=== PATIENT | male | born 1985 | race Caucasian/White ===

== ENCOUNTER 2019-10-23 19:36 | Emergency (ER) | payer MEDICARE, MEDICAID ==
[~2019-10-23] VITALS: Ht 175.3 cm; Wt 72.7 kg
[~2019-10-23 19:36] MED LIST: DIPH50 PO; DIVA500T52 PO; OLAN10TA3 PO
[2019-10-23] MEDS ORDERED: RISP1TAB27 PO (19:43)
[2019-10-23 20:13] LABS: AMPHET/METH SCREEN,URINE NEGATIVE (NEGATIVE); BARBITURATE SCREEN, URINE NEGATIVE (NEGATIVE); BENZODIAZEPINES SCREEN,URINE NEGATIVE (NEGATIVE); CANNABINOID SCREEN,URINE NEGATIVE (NEGATIVE); COCAINE SCREEN,URINE NEGATIVE (NEGATIVE); METHADONE SCREEN, URINE NEGATIVE (NEGATIVE); OPIATE SCREEN,URINE NEGATIVE (NEGATIVE)
[2019-10-23 20:18] LABS: PHENCYCLIDINE SCREEN,URINE NEGATIVE (NEGATIVE)
[2019-10-23 21:57] LABS: ANION GAP 10 mmol/L (8-16); CALCIUM, TOTAL 8.6 mg/dL (8.8-10.5); CARBON DIOXIDE 25 mmol/L (22-29); CHLORIDE 102 mmol/L (98-107); CREATININE 0.68 mg/dL (0.60-1.30); GLOMERULAR FILTR. RATE CALC > 60 mL/min (>60); GLUCOSE,RANDOM 108 mg/dL (70-110); POTASSIUM 3.9 mmol/L (3.5-5.1); SODIUM SERUM 137 mmol/L (136-145); UREA NITROGEN, BLOOD 6 mg/dL (7-18)
[2019-10-23 22:02] LABS: ALANINE AMINOTRANSFERASE 18 U/L (12-78); ALBUMIN 3.7 g/dL (3.4-5.0); ALKALINE PHOSPHATASE 95 U/L (46-116); ASPARTATE AMINOTRANSFERASE 23 U/L (15-37); BILIRUBIN,TOTAL 0.3 mg/dL (0.1-1.0); TOTAL PROTEIN, SERUM 7.1 g/dL (6.4-8.2)
[2019-10-23 22:35] LABS: BASOPHILS % (AUTO) 1.2 % (0.0-2.0); EOSINOPHILS % (AUTO) 2.4 % (1.0-6.0); HEMATOCRIT 40.3 % (41-53); HEMOGLOBIN 13.4 g/dL (13.5-17.5); LYMPHOCYTES # (AUTO) 1.4 K/uL (1.0-4.8); LYMPHOCYTES % (AUTO) 24.6 % (22.0-44.0); MEAN CORPUSCULAR HEMOGLOBIN 29.9 pg (26.0-34.0); MEAN CORPUSCULAR HGB CONC 33.4 G/dL (31.0-37.0); MEAN CORPUSCULAR VOLUME 90 fL (80-100); MONOCYTES # (AUTO) 0.7 K/uL (0.1-1.0); MONOCYTES % (AUTO) 12.3 % (2.0-9.0); NEUTROPHILS # (AUTO) 3.5 K/uL (1.8-7.7); NEUTROPHILS % (AUTO) 59.5 % (40.0-70.0); PLATELET COUNT (AUTO) 160 K/uL (150-450); RED BLOOD CELL COUNT(AUTO) 4.49 MIL/uL (4.50-5.90)
[2019-10-24 00:14] VITALS: BP 124/72
[2019-10-24] MEDS ORDERED: RisperiDONE 1 MG TABLET PO ONE (00:45)
== END 2019-10-24 00:50 | disposition home or self-care (01) ==
LOC: EMS 19:37
DX: R44.0 Auditory hallucinations (principal); F12.90 Cannabis use, unspecified, uncomplicated; F15.90 Other stimulant use, unspecified, uncomplicated
CPT/HCPCS: 36415; 80053; 80307; 85025; 99284; G0480

== ENCOUNTER 2020-08-20 15:12 | Inpatient (IN) | payer MEDICARE, MEDICAID ==
[~2020-08-20] VITALS: Ht 175.3 cm; Wt 83.8 kg
[~2020-08-20 15:12] MED LIST changes: -DIPH50 PO; -DIVA500T52 PO; -OLAN10TA3 PO; +RISP1TAB48 PO
[2020-08-20] MEDS ORDERED: TRIF2 PO (15:23)
[2020-08-20] MEDS ORDERED: DIVA-80 PO (15:23)
[2020-08-20] MEDS ORDERED: CHLO100T31 PO (15:23)
[2020-08-20] MEDS ORDERED: HALOPERIDOL 5 MG TABLET PO ONE ×2 (15:45→16:15)
[2020-08-20 18:52] LABS: COVID AG,FIA SOURCE NASOPHARYNGEAL
[2020-08-20] MEDS ORDERED: [UNRECOGNIZED DRUG - CODE] PO (19:35)
[2020-08-20] MEDS: LORazepam 2 MG TABLET PO PRN (22:15)
[2020-08-20] MEDS: ZOLPIDEM TARTRATE 10 MG TABLET PO PRN (22:15)
[2020-08-20 22:24] VITALS: BP 108/69
[2020-08-21 00:29] VITALS: BP 93/57
[2020-08-21] MEDS ORDERED: NICOTINE 14 MG/24 HOUR PATCH TD PRN (07:00)
[2020-08-21] MEDS ORDERED: ONDANSETRON HCL 4 MG TABLET PO PRN (07:00)
[2020-08-21] MEDS ORDERED: LOPERAMIDE HCL 2 MG CAPSULE PO PRN (07:00)
[2020-08-21] MEDS ORDERED: CloNIDine HCL 0.1 MG TABLET PO PRN (07:00)
[2020-08-21] MEDS ORDERED: DOCUSATE SODIUM 100 MG CAPSULE PO PRN (07:00)
[2020-08-21] MEDS ORDERED: ACETAMINOPHEN 325 MG TABLET PO PRN (07:00)
[2020-08-21] MEDS ORDERED: GuaiFENesin/D-METHORPHAN [SUGAR-FREE] 200-20MG/10 ML SYRUP UDCUP PO PRN (07:00)
[2020-08-21] MEDS ORDERED: ALBUTEROL SULFATE HFA 90 MCG/PUFF 8 GM INHALER IH PRN (07:00)
[2020-08-21 07:42] LABS: BASOPHILS % (AUTO) 1.9 % (0.0-2.0); HEMATOCRIT 36.3 % (41-53); HEMOGLOBIN 12.6 g/dL (13.5-17.5); LYMPHOCYTES % (AUTO) 33.7 % (22.0-44.0); MEAN CORPUSCULAR HEMOGLOBIN 31.3 pg (26.0-34.0); MEAN CORPUSCULAR HGB CONC 34.6 G/dL (31.0-37.0); MEAN CORPUSCULAR VOLUME 90 fL (80-100); MONOCYTES # (AUTO) 0.6 K/uL (0.1-1.0); MONOCYTES % (AUTO) 9.7 % (2.0-9.0); NEUTROPHILS # (AUTO) 1.4 K/uL (1.8-7.7); PLATELET COUNT (AUTO) 182 K/uL (150-450); RED BLOOD CELL COUNT(AUTO) 4.02 MIL/uL (4.50-5.90); RED CELL DISTRIBUTION WIDTH 14.1 % (11.5-14.5)
[2020-08-21 07:44] LABS: EOSINOPHILS % (AUTO) 31.7 % (1.0-6.0)
[2020-08-21 08:01] LABS: ALANINE AMINOTRANSFERASE 20 U/L (12-78); ALBUMIN 3.2 g/dL (3.4-5.0); ALKALINE PHOSPHATASE 57 U/L (46-116); ANION GAP 6 mmol/L (8-16); ASPARTATE AMINOTRANSFERASE 17 U/L (15-37); BILIRUBIN,TOTAL 0.6 mg/dL (0.1-1.0); CALCIUM, TOTAL 8.3 mg/dL (8.8-10.5); CARBON DIOXIDE 28 mmol/L (22-29); CHLORIDE 109 mmol/L (98-107); CREATININE 0.67 mg/dL (0.60-1.30); GLOMERULAR FILTR. RATE CALC > 60 mL/min (>60); GLUCOSE,RANDOM 89 mg/dL (70-110); SODIUM SERUM 143 mmol/L (136-145); UREA NITROGEN, BLOOD 10 mg/dL (7-18)
[2020-08-21 08:10] VITALS: BP 109/65
[2020-08-21] MEDS: DIVALPROEX SODIUM 500 MG ER TABLET PO SCH (16:30)
[2020-08-21] MEDS: RisperiDONE 1 MG TABLET PO SCH (16:30)
[2020-08-21 16:33] VITALS: BP 105/62
[2020-08-21] MEDS: LORazepam 2 MG TABLET PO PRN (16:35)
[2020-08-22 00:21] VITALS: BP 86/60
[2020-08-22] MEDS: RisperiDONE 1 MG TABLET PO SCH ×3 (08:52→16:18)
[2020-08-22] MEDS: DIVALPROEX SODIUM 500 MG ER TABLET PO SCH ×3 (08:52→16:18)
[2020-08-22] MEDS: HALOPERIDOL 5 MG TABLET PO PRN (09:07)
[2020-08-22] MEDS: LORazepam 2 MG TABLET PO PRN ×2 (10:10→21:23)
[2020-08-22 12:38] VITALS: BP 100/64
[2020-08-22 16:36] VITALS: BP 101/66
[2020-08-23 06:12] VITALS: BP 100/61
[2020-08-23 08:40] VITALS: BP 106/60
[2020-08-23] MEDS: RisperiDONE 1 MG TABLET PO SCH ×2 (08:58→13:12)
[2020-08-23] MEDS: DIVALPROEX SODIUM 500 MG ER TABLET PO SCH ×3 (08:58→16:37)
[2020-08-23 16:31] VITALS: BP 107/63
[2020-08-23] MEDS: ChlorproMAZINE HCL 100 MG TABLET PO SCH (16:37)
[2020-08-23] MEDS: MUPIROCIN CALCIUM 2% 22 GM OINTMENT NASAL SCH ×2 (17:00→21:52)
[2020-08-23] MEDS: HALOPERIDOL 5 MG TABLET PO PRN (20:12)
[2020-08-23] MEDS: LORazepam 2 MG TABLET PO PRN (20:12)
[2020-08-24 05:49] VITALS: BP 102/69
[2020-08-24 08:21] LABS: HEMOGLOBIN A1C 5.1 % (3.8-5.6)
[2020-08-24 08:23] LABS: BASOPHILS % (AUTO) 1.3 % (0.0-2.0); HEMATOCRIT 37.8 % (41-53); HEMOGLOBIN 13.1 g/dL (13.5-17.5); LYMPHOCYTES # (AUTO) 1.8 K/uL (1.0-4.8); LYMPHOCYTES % (AUTO) 25.3 % (22.0-44.0); MEAN CORPUSCULAR HEMOGLOBIN 31.4 pg (26.0-34.0); MEAN CORPUSCULAR HGB CONC 34.6 G/dL (31.0-37.0); MEAN CORPUSCULAR VOLUME 91 fL (80-100); MONOCYTES # (AUTO) 0.8 K/uL (0.1-1.0); MONOCYTES % (AUTO) 11.2 % (2.0-9.0); NEUTROPHILS # (AUTO) 3.1 K/uL (1.8-7.7); NEUTROPHILS % (AUTO) 43.6 % (40.0-70.0); PLATELET COUNT (AUTO) 182 K/uL (150-450); RED BLOOD CELL COUNT(AUTO) 4.17 MIL/uL (4.50-5.90); RED CELL DISTRIBUTION WIDTH 13.8 % (11.5-14.5)
[2020-08-24 08:24] VITALS: BP 110/68
[2020-08-24 08:26] LABS: EOSINOPHILS % (AUTO) 18.6 % (1.0-6.0)
[2020-08-24 08:46] LABS: ALANINE AMINOTRANSFERASE 21 U/L (12-78); ALBUMIN 3.5 g/dL (3.4-5.0); ALKALINE PHOSPHATASE 58 U/L (46-116); ANION GAP 7 mmol/L (8-16); ASPARTATE AMINOTRANSFERASE 14 U/L (15-37); BILIRUBIN,TOTAL 0.8 mg/dL (0.1-1.0); CALCIUM, TOTAL 8.5 mg/dL (8.8-10.5); CARBON DIOXIDE 29 mmol/L (22-29); CHLORIDE 105 mmol/L (98-107); CHOL/HDL RATIO 1.6 (4.2-7.3); CHOLESTEROL 78 mg/dL (131-200); CREATININE 0.72 mg/dL (0.60-1.30); FREE T4 (FREE THYROXINE) 0.92 ng/dL (0.76-1.46); GLOMERULAR FILTR. RATE CALC > 60 mL/min (>60); GLUCOSE,RANDOM 88 mg/dL (70-110); HDL CHOLESTEROL 48 mg/dL (40-60); LDL CHOL (CALC.) 20 mg/dL (0-130); POTASSIUM 4.4 mmol/L (3.5-5.1); SODIUM SERUM 141 mmol/L (136-145); THYROID STIMULATING HORMONE 1.33 uIU/mL (0.36-3.74); TOTAL PROTEIN, SERUM 6.3 g/dL (6.4-8.2); TRIGLYCERIDES 50 mg/dL (15-150); UREA NITROGEN, BLOOD 12 mg/dL (7-18)
[2020-08-24] MEDS: DIVALPROEX SODIUM 500 MG ER TABLET PO SCH ×3 (09:24→16:38)
[2020-08-24] MEDS: ChlorproMAZINE HCL 100 MG TABLET PO SCH ×3 (09:24→16:38)
[2020-08-24] MEDS: MUPIROCIN CALCIUM 2% 22 GM OINTMENT NASAL SCH ×2 (09:24→16:39)
[2020-08-24] MEDS: LORazepam 2 MG TABLET PO PRN (12:55)
[2020-08-24 16:24] VITALS: BP 116/70
[2020-08-25 02:31] VITALS: BP 116/75
[2020-08-25 07:59] LABS: COVID AG,FIA SOURCE NASOPHARYNGEAL
[2020-08-25 08:41] VITALS: BP 106/67
[2020-08-25] MEDS: HALOPERIDOL 5 MG TABLET PO PRN (08:45)
[2020-08-25] MEDS: ChlorproMAZINE HCL 100 MG TABLET PO SCH ×3 (08:45→16:30)
[2020-08-25] MEDS: LORazepam 2 MG TABLET PO PRN (08:45)
[2020-08-25] MEDS: DIVALPROEX SODIUM 500 MG ER TABLET PO SCH ×3 (08:45→16:30)
[2020-08-25] MEDS: MUPIROCIN CALCIUM 2% 22 GM OINTMENT NASAL SCH ×2 (08:46→16:29)
[2020-08-25 16:24] VITALS: BP 115/76
[2020-08-25] MEDS: BACITRACIN 28 GM OINTMENT TP SCH (16:44)
[2020-08-26 05:44] VITALS: BP 97/56
[2020-08-26] MEDS: HALOPERIDOL 5 MG TABLET PO PRN ×2 (07:34→11:45)
[2020-08-26] MEDS: BACITRACIN 28 GM OINTMENT TP SCH ×2 (08:57→16:29)
[2020-08-26] MEDS: ChlorproMAZINE HCL 100 MG TABLET PO SCH ×3 (08:57→16:29)
[2020-08-26] MEDS: DIVALPROEX SODIUM 500 MG ER TABLET PO SCH ×3 (08:57→16:29)
[2020-08-26] MEDS: MUPIROCIN CALCIUM 2% 22 GM OINTMENT NASAL SCH ×2 (08:58→16:29)
[2020-08-26 09:00] VITALS: BP 100/66
[2020-08-26] MEDS: LORazepam 2 MG TABLET PO PRN (11:45)
[2020-08-26 16:12] VITALS: BP 137/64
[2020-08-27 01:17] VITALS: BP 119/77
[2020-08-27 08:29] VITALS: BP 103/64
[2020-08-27] MEDS: ChlorproMAZINE HCL 100 MG TABLET PO SCH ×3 (08:57→16:31)
[2020-08-27] MEDS: THIAMINE 100 MG TABLET PO SCH (08:57)
[2020-08-27] MEDS: FOLIC ACID 1 MG TABLET PO SCH (08:57)
[2020-08-27] MEDS: DIVALPROEX SODIUM 500 MG ER TABLET PO SCH ×3 (08:57→16:31)
[2020-08-27] MEDS: MUPIROCIN CALCIUM 2% 22 GM OINTMENT NASAL SCH ×2 (08:59→16:31)
[2020-08-27] MEDS: BACITRACIN 28 GM OINTMENT TP SCH ×2 (09:07→16:32)
[2020-08-27] MEDS: LORazepam 2 MG TABLET PO PRN (10:10)
[2020-08-27] MEDS: HALOPERIDOL 5 MG TABLET PO PRN (10:10)
[2020-08-27 16:08] VITALS: BP 107/72
[2020-08-28 00:25] VITALS: BP 113/62
[2020-08-28] MEDS: ChlorproMAZINE HCL 100 MG TABLET PO SCH ×3 (08:32→16:00)
[2020-08-28] MEDS: THIAMINE 100 MG TABLET PO SCH (08:32)
[2020-08-28] MEDS: LORazepam 2 MG TABLET PO PRN ×3 (08:32→18:22)
[2020-08-28] MEDS: HALOPERIDOL 5 MG TABLET PO PRN (08:32)
[2020-08-28] MEDS: FOLIC ACID 1 MG TABLET PO SCH (08:32)
[2020-08-28] MEDS: DIVALPROEX SODIUM 500 MG ER TABLET PO SCH ×3 (08:32→16:00)
[2020-08-28] MEDS: BACITRACIN 28 GM OINTMENT TP SCH ×2 (08:33→16:09)
[2020-08-28] MEDS: MUPIROCIN CALCIUM 2% 22 GM OINTMENT NASAL SCH ×2 (08:33→16:10)
[2020-08-28 08:40] VITALS: BP 106/66
[2020-08-28] MEDS ORDERED: PALIPERIDONE PALMITATE 234 MG/1.5 ML SYRINGE IM SCH (09:00)
[2020-08-28 16:09] VITALS: BP 107/67
[2020-08-29 07:01] VITALS: BP 98/60
[2020-08-29 08:16] VITALS: BP 105/62
[2020-08-29] MEDS: THIAMINE 100 MG TABLET PO SCH (08:18)
[2020-08-29] MEDS: HALOPERIDOL 5 MG TABLET PO PRN (08:18)
[2020-08-29] MEDS: DIVALPROEX SODIUM 500 MG ER TABLET PO SCH ×3 (08:18→20:37)
[2020-08-29] MEDS: LORazepam 2 MG TABLET PO PRN ×3 (08:18→16:57)
[2020-08-29] MEDS: FOLIC ACID 1 MG TABLET PO SCH (08:18)
[2020-08-29] MEDS: BACITRACIN 28 GM OINTMENT TP SCH ×2 (08:24→16:27)
[2020-08-29] MEDS: MUPIROCIN CALCIUM 2% 22 GM OINTMENT NASAL SCH ×2 (08:24→16:27)
[2020-08-29] MEDS: ChlorproMAZINE HCL 100 MG TABLET PO SCH ×3 (09:05→20:37)
[2020-08-29 16:16] VITALS: BP 118/71
[2020-08-30 00:28] VITALS: BP 95/60
[2020-08-30] MEDS: DIVALPROEX SODIUM 500 MG ER TABLET PO SCH ×3 (08:34→20:39)
[2020-08-30] MEDS: ChlorproMAZINE HCL 100 MG TABLET PO SCH ×3 (08:34→20:39)
[2020-08-30] MEDS: FOLIC ACID 1 MG TABLET PO SCH (08:34)
[2020-08-30] MEDS: MUPIROCIN CALCIUM 2% 22 GM OINTMENT NASAL SCH ×2 (08:34→16:38)
[2020-08-30] MEDS: BACITRACIN 28 GM OINTMENT TP SCH ×2 (08:34→16:38)
[2020-08-30 08:35] VITALS: BP 106/68
[2020-08-30] MEDS: THIAMINE 100 MG TABLET PO SCH (08:37)
[2020-08-30] MEDS: LORazepam 2 MG TABLET PO PRN (13:13)
[2020-08-30 16:09] VITALS: BP 108/69
[2020-08-31 00:31] VITALS: BP 106/63
[2020-08-31] MEDS: DIVALPROEX SODIUM 500 MG ER TABLET PO SCH ×3 (08:23→20:04)
[2020-08-31] MEDS: FOLIC ACID 1 MG TABLET PO SCH (08:24)
[2020-08-31] MEDS: THIAMINE 100 MG TABLET PO SCH (08:24)
[2020-08-31] MEDS: BACITRACIN 28 GM OINTMENT TP SCH ×2 (08:24→16:20)
[2020-08-31 08:38] VITALS: BP 113/65
[2020-08-31] MEDS: LORazepam 2 MG TABLET PO PRN ×2 (08:45→14:46)
[2020-08-31] MEDS: ChlorproMAZINE HCL 100 MG TABLET PO SCH ×3 (08:45→20:04)
[2020-08-31] MEDS: HALOPERIDOL 5 MG TABLET PO PRN ×3 (08:45→20:04)
[2020-08-31 16:18] VITALS: BP 116/75
[2020-09-01 00:36] VITALS: BP 105/63
[2020-09-01 07:20] LABS: COVID AG,FIA SOURCE NASOPHARYNGEAL
[2020-09-01] MEDS: THIAMINE 100 MG TABLET PO SCH (09:03)
[2020-09-01] MEDS: ChlorproMAZINE HCL 100 MG TABLET PO SCH ×3 (09:03→20:30)
[2020-09-01] MEDS: DIVALPROEX SODIUM 500 MG ER TABLET PO SCH ×3 (09:03→20:30)
[2020-09-01] MEDS: FOLIC ACID 1 MG TABLET PO SCH (09:03)
[2020-09-01] MEDS: HALOPERIDOL 5 MG TABLET PO PRN ×2 (09:08→22:17)
[2020-09-01] MEDS: LORazepam 2 MG TABLET PO PRN ×2 (09:08→22:17)
[2020-09-01] MEDS: BACITRACIN 28 GM OINTMENT TP SCH ×2 (09:10→16:20)
[2020-09-01 09:12] VITALS: BP 102/57
[2020-09-01 16:27] VITALS: BP 104/58
[2020-09-02 04:32] VITALS: BP 118/65
[2020-09-02 08:12] VITALS: BP 110/66
[2020-09-02] MEDS: BACITRACIN 28 GM OINTMENT TP SCH ×2 (08:52→16:44)
[2020-09-02] MEDS: ChlorproMAZINE HCL 100 MG TABLET PO SCH ×3 (08:52→20:40)
[2020-09-02] MEDS: FOLIC ACID 1 MG TABLET PO SCH (08:52)
[2020-09-02] MEDS: DIVALPROEX SODIUM 500 MG ER TABLET PO SCH ×3 (08:52→20:40)
[2020-09-02] MEDS: THIAMINE 100 MG TABLET PO SCH (08:52)
[2020-09-02] MEDS: LORazepam 2 MG TABLET PO PRN (08:53)
[2020-09-02] MEDS: HALOPERIDOL 5 MG TABLET PO PRN (08:53)
[2020-09-02 16:08] VITALS: BP 108/70
[2020-09-02] MEDS: MAG HYDROX/AL HYDROX/SIMETH ES 30 ML SUSPENSION UDCUP PO PRN (20:39)
[2020-09-03 00:48] VITALS: BP 100/58
[2020-09-03] MEDS: LORazepam 2 MG TABLET PO PRN ×3 (01:20→14:41)
[2020-09-03 08:14] VITALS: BP 109/68
[2020-09-03] MEDS: THIAMINE 100 MG TABLET PO SCH (08:47)
[2020-09-03] MEDS: DIVALPROEX SODIUM 500 MG ER TABLET PO SCH ×3 (08:47→20:30)
[2020-09-03] MEDS: FOLIC ACID 1 MG TABLET PO SCH (08:47)
[2020-09-03] MEDS: ChlorproMAZINE HCL 100 MG TABLET PO SCH ×3 (08:47→20:30)
[2020-09-03] MEDS: HALOPERIDOL 5 MG TABLET PO PRN ×2 (08:48→14:41)
[2020-09-03] MEDS: BACITRACIN 28 GM OINTMENT TP SCH ×2 (08:48→16:34)
[2020-09-03 16:11] VITALS: BP 110/72
[2020-09-04 06:04] VITALS: BP 99/61
[2020-09-04 08:21] VITALS: BP 106/64
[2020-09-04] MEDS: DIVALPROEX SODIUM 500 MG ER TABLET PO SCH ×3 (08:40→20:34)
[2020-09-04] MEDS: THIAMINE 100 MG TABLET PO SCH (08:40)
[2020-09-04] MEDS: FOLIC ACID 1 MG TABLET PO SCH (08:41)
[2020-09-04] MEDS: ChlorproMAZINE HCL 100 MG TABLET PO SCH ×3 (08:41→20:34)
[2020-09-04] MEDS: BACITRACIN 28 GM OINTMENT TP SCH ×2 (08:43→16:33)
[2020-09-04] MEDS: HALOPERIDOL 5 MG TABLET PO PRN (09:16)
[2020-09-04] MEDS: LORazepam 2 MG TABLET PO PRN ×2 (09:53→16:09)
[2020-09-04 16:24] VITALS: BP 108/67
[2020-09-05 00:37] VITALS: BP 94/51
[2020-09-05 08:37] VITALS: BP 108/62
[2020-09-05] MEDS: FOLIC ACID 1 MG TABLET PO SCH (09:42)
[2020-09-05] MEDS: ChlorproMAZINE HCL 100 MG TABLET PO SCH ×3 (09:42→20:42)
[2020-09-05] MEDS: DIVALPROEX SODIUM 500 MG ER TABLET PO SCH ×3 (09:42→20:42)
[2020-09-05] MEDS: BACITRACIN 28 GM OINTMENT TP SCH ×2 (09:43→16:46)
[2020-09-05] MEDS: THIAMINE 100 MG TABLET PO SCH (09:43)
[2020-09-05] MEDS: LORazepam 2 MG TABLET PO PRN (10:51)
[2020-09-05 16:18] VITALS: BP 115/76
[2020-09-05] MEDS: MAG HYDROX/AL HYDROX/SIMETH ES 30 ML SUSPENSION UDCUP PO PRN (21:40)
[2020-09-06 00:35] VITALS: BP 123/71
[2020-09-06 02:50] VITALS: BP 119/64
[2020-09-06] MEDS: HALOPERIDOL 5 MG TABLET PO PRN ×3 (03:13→13:12)
[2020-09-06] MEDS: LORazepam 2 MG TABLET PO PRN ×5 (03:13→13:04)
[2020-09-06 08:11] VITALS: BP 101/61
[2020-09-06] MEDS: ZOLPIDEM TARTRATE 10 MG TABLET PO PRN (08:30)
[2020-09-06] MEDS: FOLIC ACID 1 MG TABLET PO SCH (09:10)
[2020-09-06] MEDS: BACITRACIN 28 GM OINTMENT TP SCH ×2 (09:10→16:13)
[2020-09-06] MEDS: THIAMINE 100 MG TABLET PO SCH (09:10)
[2020-09-06] MEDS: ChlorproMAZINE HCL 100 MG TABLET PO SCH ×3 (09:10→20:49)
[2020-09-06] MEDS: DIVALPROEX SODIUM 500 MG ER TABLET PO SCH ×3 (09:10→20:49)
[2020-09-06 16:23] VITALS: BP 124/73
[2020-09-07 00:55] VITALS: BP 110/62
[2020-09-07 07:58] LABS: COVID AG,FIA SOURCE NASOPHARYNGEAL
[2020-09-07 08:34] VITALS: BP 108/66
[2020-09-07] MEDS: DIVALPROEX SODIUM 500 MG ER TABLET PO SCH ×3 (08:49→20:31)
[2020-09-07] MEDS: FOLIC ACID 1 MG TABLET PO SCH (08:50)
[2020-09-07] MEDS: ChlorproMAZINE HCL 100 MG TABLET PO SCH ×3 (08:50→20:31)
[2020-09-07] MEDS: THIAMINE 100 MG TABLET PO SCH (08:50)
[2020-09-07] MEDS: BACITRACIN 28 GM OINTMENT TP SCH ×2 (08:51→16:34)
[2020-09-07] MEDS: LORazepam 2 MG TABLET PO PRN ×2 (08:51→22:10)
[2020-09-07 16:15] VITALS: BP 112/66
[2020-09-08] MEDS: MAG HYDROX/AL HYDROX/SIMETH ES 30 ML SUSPENSION UDCUP PO PRN (00:15)
[2020-09-08] MEDS: ZOLPIDEM TARTRATE 10 MG TABLET PO PRN (00:15)
[2020-09-08] MEDS: HALOPERIDOL 5 MG TABLET PO PRN (00:15)
[2020-09-08 00:35] VITALS: BP 97/61
[2020-09-08] MEDS: ChlorproMAZINE HCL 100 MG TABLET PO SCH ×3 (08:11→20:42)
[2020-09-08] MEDS: DIVALPROEX SODIUM 500 MG ER TABLET PO SCH ×3 (08:11→20:42)
[2020-09-08] MEDS: THIAMINE 100 MG TABLET PO SCH (08:11)
[2020-09-08] MEDS: FOLIC ACID 1 MG TABLET PO SCH (08:11)
[2020-09-08] MEDS: BACITRACIN 28 GM OINTMENT TP SCH ×2 (08:12→16:48)
[2020-09-08 08:30] VITALS: BP 109/74
[2020-09-08 16:10] VITALS: BP 112/70
[2020-09-08] MEDS: LORazepam 2 MG TABLET PO PRN (17:08)
[2020-09-09 00:56] VITALS: BP 92/56
[2020-09-09] MEDS: LORazepam 2 MG TABLET PO PRN ×3 (06:33→18:03)
[2020-09-09] MEDS: HALOPERIDOL 5 MG TABLET PO PRN ×3 (06:33→18:03)
[2020-09-09 08:15] VITALS: BP 117/72
[2020-09-09] MEDS: FOLIC ACID 1 MG TABLET PO SCH (08:21)
[2020-09-09] MEDS: ChlorproMAZINE HCL 100 MG TABLET PO SCH ×3 (08:21→20:36)
[2020-09-09] MEDS: THIAMINE 100 MG TABLET PO SCH (08:21)
[2020-09-09] MEDS: DIVALPROEX SODIUM 500 MG ER TABLET PO SCH ×3 (08:21→20:36)
[2020-09-09] MEDS: BACITRACIN 28 GM OINTMENT TP SCH ×2 (09:31→16:31)
[2020-09-09 16:45] VITALS: BP 110/71
[2020-09-10 00:25] VITALS: BP 108/65
[2020-09-10 08:19] VITALS: BP 107/65
[2020-09-10] MEDS: FOLIC ACID 1 MG TABLET PO SCH (09:00)
[2020-09-10] MEDS: BACITRACIN 28 GM OINTMENT TP SCH ×2 (09:00→17:29)
[2020-09-10] MEDS: DIVALPROEX SODIUM 500 MG ER TABLET PO SCH ×3 (09:17→20:33)
[2020-09-10] MEDS: HALOPERIDOL 5 MG TABLET PO PRN ×2 (09:17→14:28)
[2020-09-10] MEDS: THIAMINE 100 MG TABLET PO SCH (09:18)
[2020-09-10] MEDS: LORazepam 2 MG TABLET PO PRN (10:38)
[2020-09-10] MEDS: ChlorproMAZINE HCL 100 MG TABLET PO SCH ×3 (11:44→20:34)
[2020-09-10 16:19] VITALS: BP 112/76
[2020-09-11 00:21] VITALS: BP 116/72
[2020-09-11] MEDS: HALOPERIDOL 5 MG TABLET PO PRN (07:56)
[2020-09-11] MEDS: LORazepam 2 MG TABLET PO PRN (07:56)
[2020-09-11] MEDS: THIAMINE 100 MG TABLET PO SCH (08:17)
[2020-09-11] MEDS: DIVALPROEX SODIUM 500 MG ER TABLET PO SCH ×3 (08:17→20:48)
[2020-09-11] MEDS: ChlorproMAZINE HCL 100 MG TABLET PO SCH ×3 (08:17→20:49)
[2020-09-11 08:18] VITALS: BP 114/71
[2020-09-11] MEDS: BACITRACIN 28 GM OINTMENT TP SCH ×2 (08:18→15:47)
[2020-09-11] MEDS: FOLIC ACID 1 MG TABLET PO SCH (08:19)
[2020-09-11 16:25] VITALS: BP 113/77
[2020-09-12 01:02] VITALS: BP 110/63
[2020-09-12] MEDS: DIVALPROEX SODIUM 500 MG ER TABLET PO SCH ×3 (08:17→20:31)
[2020-09-12] MEDS: THIAMINE 100 MG TABLET PO SCH (08:17)
[2020-09-12] MEDS: FOLIC ACID 1 MG TABLET PO SCH (08:17)
[2020-09-12] MEDS: ChlorproMAZINE HCL 100 MG TABLET PO SCH ×3 (08:18→20:31)
[2020-09-12] MEDS: HALOPERIDOL 5 MG TABLET PO PRN ×2 (08:19→12:24)
[2020-09-12] MEDS: LORazepam 2 MG TABLET PO PRN ×2 (08:19→12:24)
[2020-09-12 08:35] VITALS: BP 112/68
[2020-09-12] MEDS: BACITRACIN 28 GM OINTMENT TP SCH ×2 (09:38→16:30)
[2020-09-12 16:24] VITALS: BP 110/74
[2020-09-13 01:11] VITALS: BP 112/70
[2020-09-13] MEDS: FOLIC ACID 1 MG TABLET PO SCH (08:26)
[2020-09-13] MEDS: DIVALPROEX SODIUM 500 MG ER TABLET PO SCH ×3 (08:26→20:37)
[2020-09-13] MEDS: THIAMINE 100 MG TABLET PO SCH (08:26)
[2020-09-13] MEDS: LORazepam 2 MG TABLET PO PRN ×2 (08:27→21:43)
[2020-09-13] MEDS: ChlorproMAZINE HCL 100 MG TABLET PO SCH ×3 (08:27→20:37)
[2020-09-13] MEDS: HALOPERIDOL 5 MG TABLET PO PRN ×2 (08:27→21:43)
[2020-09-13] MEDS: BACITRACIN 28 GM OINTMENT TP SCH ×2 (08:30→16:38)
[2020-09-13 10:08] VITALS: BP 121/70
[2020-09-13 16:15] VITALS: BP 117/76
[2020-09-14 00:45] VITALS: BP 105/66
[2020-09-14 07:23] LABS: COVID AG,FIA SOURCE NASOPHARYNGEAL
[2020-09-14 08:19] VITALS: BP 102/63
[2020-09-14] MEDS: LORazepam 2 MG TABLET PO PRN ×2 (09:24→14:11)
[2020-09-14] MEDS: DIVALPROEX SODIUM 500 MG ER TABLET PO SCH ×3 (09:24→20:37)
[2020-09-14] MEDS: FOLIC ACID 1 MG TABLET PO SCH (09:24)
[2020-09-14] MEDS: ChlorproMAZINE HCL 100 MG TABLET PO SCH ×3 (09:24→20:37)
[2020-09-14] MEDS: THIAMINE 100 MG TABLET PO SCH (09:24)
[2020-09-14] MEDS: BACITRACIN 28 GM OINTMENT TP SCH ×2 (09:25→16:38)
[2020-09-14] MEDS: HALOPERIDOL 5 MG TABLET PO PRN ×2 (09:43→14:11)
[2020-09-14 16:18] VITALS: BP 114/73
[2020-09-14] MEDS: RisperiDONE 1 MG TABLET PO SCH ×2 (16:38→20:41)
[2020-09-15 00:41] VITALS: BP 109/75
[2020-09-15] MEDS: LORazepam 2 MG TABLET PO PRN ×2 (08:00→13:15)
[2020-09-15 08:34] VITALS: BP 106/76
[2020-09-15] MEDS: FOLIC ACID 1 MG TABLET PO SCH (09:00)
[2020-09-15] MEDS: RisperiDONE 1 MG TABLET PO SCH ×3 (09:10→20:44)
[2020-09-15] MEDS: THIAMINE 100 MG TABLET PO SCH (09:10)
[2020-09-15] MEDS: DIVALPROEX SODIUM 500 MG ER TABLET PO SCH ×3 (09:10→20:44)
[2020-09-15] MEDS: ChlorproMAZINE HCL 100 MG TABLET PO SCH ×3 (09:10→20:44)
[2020-09-15] MEDS: BACITRACIN 28 GM OINTMENT TP SCH ×2 (09:11→16:40)
[2020-09-15] MEDS: HALOPERIDOL 5 MG TABLET PO PRN (13:15)
[2020-09-15 16:23] VITALS: BP 108/69
[2020-09-16 00:38] VITALS: BP 107/72
[2020-09-16 06:55] VITALS: BP 112/76
[2020-09-16] MEDS: LORazepam 2 MG TABLET PO PRN (06:57)
[2020-09-16] MEDS: FOLIC ACID 1 MG TABLET PO SCH (09:00)
[2020-09-16] MEDS: BACITRACIN 28 GM OINTMENT TP SCH ×3 (09:00→20:49)
[2020-09-16] MEDS: RisperiDONE 1 MG TABLET PO SCH ×3 (09:13→20:49)
[2020-09-16] MEDS: THIAMINE 100 MG TABLET PO SCH (09:13)
[2020-09-16] MEDS: DIVALPROEX SODIUM 500 MG ER TABLET PO SCH ×3 (09:13→20:50)
[2020-09-16] MEDS: ChlorproMAZINE HCL 100 MG TABLET PO SCH ×3 (09:13→20:50)
[2020-09-16 09:17] VITALS: BP 100/63
[2020-09-16] MEDS: HALOPERIDOL 5 MG TABLET PO PRN (09:36)
[2020-09-16 16:13] VITALS: BP 121/76
[2020-09-17 05:18] VITALS: BP 101/66
[2020-09-17 08:24] VITALS: BP 109/69
[2020-09-17] MEDS: FOLIC ACID 1 MG TABLET PO SCH (09:00)
[2020-09-17] MEDS: RisperiDONE 1 MG TABLET PO SCH ×3 (10:02→21:09)
[2020-09-17] MEDS: DIVALPROEX SODIUM 500 MG ER TABLET PO SCH ×3 (10:02→21:09)
[2020-09-17] MEDS: HALOPERIDOL 5 MG TABLET PO PRN (10:03)
[2020-09-17] MEDS: THIAMINE 100 MG TABLET PO SCH (10:03)
[2020-09-17] MEDS: LORazepam 2 MG TABLET PO PRN (10:03)
[2020-09-17] MEDS: BACITRACIN 28 GM OINTMENT TP SCH ×2 (10:04→16:38)
[2020-09-17] MEDS: ChlorproMAZINE HCL 100 MG TABLET PO SCH ×3 (13:00→21:09)
[2020-09-17 16:22] VITALS: BP 110/72
[2020-09-17] MEDS ORDERED: TUBERCULIN, PURIFIED PROTEIN DERIVATIVE 5 TU/0.1 ML SYRINGE ID ONE (22:30)
[2020-09-18 05:18] VITALS: BP 112/68
[2020-09-18 08:40] VITALS: BP 114/70
[2020-09-18] MEDS: BACITRACIN 28 GM OINTMENT TP SCH ×2 (09:00→16:35)
[2020-09-18] MEDS: LORazepam 2 MG TABLET PO PRN (09:14)
[2020-09-18] MEDS: DIVALPROEX SODIUM 500 MG ER TABLET PO SCH ×3 (09:14→20:32)
[2020-09-18] MEDS: RisperiDONE 1 MG TABLET PO SCH ×3 (09:14→20:33)
[2020-09-18] MEDS: FOLIC ACID 1 MG TABLET PO SCH (09:14)
[2020-09-18] MEDS: THIAMINE 100 MG TABLET PO SCH (09:14)
[2020-09-18] MEDS: ChlorproMAZINE HCL 100 MG TABLET PO SCH ×3 (09:15→20:33)
[2020-09-18 16:20] VITALS: BP 114/74
[2020-09-19 01:09] VITALS: BP 110/75
[2020-09-19 08:30] VITALS: BP 99/65
[2020-09-19] MEDS: ChlorproMAZINE HCL 100 MG TABLET PO SCH ×3 (09:09→20:40)
[2020-09-19] MEDS: THIAMINE 100 MG TABLET PO SCH (09:10)
[2020-09-19] MEDS: DIVALPROEX SODIUM 500 MG ER TABLET PO SCH ×3 (09:10→20:40)
[2020-09-19] MEDS: FOLIC ACID 1 MG TABLET PO SCH (09:10)
[2020-09-19] MEDS: LORazepam 2 MG TABLET PO PRN (09:10)
[2020-09-19] MEDS: RisperiDONE 1 MG TABLET PO SCH ×3 (09:10→20:40)
[2020-09-19] MEDS: BACITRACIN 28 GM OINTMENT TP SCH ×2 (09:13→16:27)
[2020-09-19] MEDS: HALOPERIDOL 5 MG TABLET PO PRN ×2 (11:10→16:27)
[2020-09-19 16:18] VITALS: BP 113/70
[2020-09-20 00:54] VITALS: BP 98/59
[2020-09-20] MEDS: DIVALPROEX SODIUM 500 MG ER TABLET PO SCH ×3 (08:14→20:17)
[2020-09-20] MEDS: ChlorproMAZINE HCL 100 MG TABLET PO SCH ×3 (08:14→20:17)
[2020-09-20] MEDS: FOLIC ACID 1 MG TABLET PO SCH (08:14)
[2020-09-20] MEDS: RisperiDONE 1 MG TABLET PO SCH (08:14)
[2020-09-20] MEDS: THIAMINE 100 MG TABLET PO SCH (08:14)
[2020-09-20] MEDS: LORazepam 2 MG TABLET PO PRN (08:15)
[2020-09-20 08:37] VITALS: BP 103/61
[2020-09-20] MEDS: BACITRACIN 28 GM OINTMENT TP SCH ×2 (09:00→16:30)
[2020-09-20 16:30] VITALS: BP 108/71
[2020-09-20] MEDS: RisperiDONE 2 MG TABLET PO SCH ×2 (16:30→20:17)
[2020-09-21 06:16] VITALS: BP 100/67
[2020-09-21 07:49] LABS: COVID AG,FIA SOURCE NASOPHARYNGEAL
[2020-09-21 08:12] VITALS: BP 109/69
[2020-09-21] MEDS: RisperiDONE 2 MG TABLET PO SCH ×3 (08:24→20:26)
[2020-09-21] MEDS: ChlorproMAZINE HCL 100 MG TABLET PO SCH ×3 (08:24→20:26)
[2020-09-21] MEDS: THIAMINE 100 MG TABLET PO SCH (08:24)
[2020-09-21] MEDS: DIVALPROEX SODIUM 500 MG ER TABLET PO SCH ×3 (08:24→20:26)
[2020-09-21] MEDS: FOLIC ACID 1 MG TABLET PO SCH (08:24)
[2020-09-21] MEDS: BACITRACIN 28 GM OINTMENT TP SCH ×2 (08:25→16:41)
[2020-09-21] MEDS: HALOPERIDOL 5 MG TABLET PO PRN ×2 (09:20→16:41)
[2020-09-21] MEDS: LORazepam 2 MG TABLET PO PRN ×2 (09:20→16:41)
[2020-09-21 16:13] VITALS: BP 112/75
[2020-09-22 01:50] VITALS: BP 119/74
[2020-09-22 08:32] VITALS: BP 120/72
[2020-09-22] MEDS: RisperiDONE 2 MG TABLET PO SCH ×3 (08:54→20:52)
[2020-09-22] MEDS: FOLIC ACID 1 MG TABLET PO SCH (08:54)
[2020-09-22] MEDS: DIVALPROEX SODIUM 500 MG ER TABLET PO SCH ×3 (08:54→20:52)
[2020-09-22] MEDS: ChlorproMAZINE HCL 100 MG TABLET PO SCH ×3 (08:54→20:52)
[2020-09-22] MEDS: THIAMINE 100 MG TABLET PO SCH (08:54)
[2020-09-22] MEDS: BACITRACIN 28 GM OINTMENT TP SCH ×2 (08:55→16:26)
[2020-09-22] MEDS: HALOPERIDOL 5 MG TABLET PO PRN ×2 (09:19→16:27)
[2020-09-22] MEDS: LORazepam 2 MG TABLET PO PRN ×2 (11:26→16:27)
[2020-09-22 16:13] VITALS: BP 120/79
[2020-09-23 05:15] VITALS: BP 104/71
[2020-09-23] MEDS: HALOPERIDOL 5 MG TABLET PO PRN (08:09)
[2020-09-23] MEDS: LORazepam 2 MG TABLET PO PRN ×2 (08:09→16:03)
[2020-09-23] MEDS: RisperiDONE 2 MG TABLET PO SCH ×3 (08:09→20:26)
[2020-09-23] MEDS: DIVALPROEX SODIUM 500 MG ER TABLET PO SCH ×3 (08:09→20:26)
[2020-09-23] MEDS: ChlorproMAZINE HCL 100 MG TABLET PO SCH ×3 (08:09→20:26)
[2020-09-23 08:12] VITALS: BP 105/66
[2020-09-23] MEDS: BACITRACIN 28 GM OINTMENT TP SCH ×2 (08:24→16:03)
[2020-09-23] MEDS: THIAMINE 100 MG TABLET PO SCH (08:37)
[2020-09-23] MEDS: FOLIC ACID 1 MG TABLET PO SCH (08:37)
[2020-09-23 16:16] VITALS: BP 113/74
[2020-09-24 00:21] VITALS: BP 117/79
[2020-09-24] MEDS: ChlorproMAZINE HCL 100 MG TABLET PO SCH ×3 (08:29→20:28)
[2020-09-24] MEDS: LORazepam 2 MG TABLET PO PRN (08:29)
[2020-09-24] MEDS: FOLIC ACID 1 MG TABLET PO SCH (08:29)
[2020-09-24] MEDS: THIAMINE 100 MG TABLET PO SCH (08:29)
[2020-09-24] MEDS: RisperiDONE 2 MG TABLET PO SCH ×3 (08:29→20:27)
[2020-09-24] MEDS: HALOPERIDOL 5 MG TABLET PO PRN (08:29)
[2020-09-24] MEDS: DIVALPROEX SODIUM 500 MG ER TABLET PO SCH ×3 (08:39→20:27)
[2020-09-24 09:14] VITALS: BP 100/62
[2020-09-24] MEDS: BACITRACIN 28 GM OINTMENT TP SCH ×2 (09:24→16:19)
[2020-09-24 16:21] VITALS: BP 105/61
[2020-09-25 00:32] VITALS: BP 111/71
[2020-09-25] MEDS: LORazepam 2 MG TABLET PO PRN ×2 (07:07→17:05)
[2020-09-25 08:27] VITALS: BP 118/60
[2020-09-25] MEDS: FOLIC ACID 1 MG TABLET PO SCH (09:00)
[2020-09-25] MEDS: HALOPERIDOL 5 MG TABLET PO PRN (10:05)
[2020-09-25] MEDS: RisperiDONE 2 MG TABLET PO SCH ×3 (10:05→21:11)
[2020-09-25] MEDS: DIVALPROEX SODIUM 500 MG ER TABLET PO SCH ×3 (10:05→21:11)
[2020-09-25] MEDS: ChlorproMAZINE HCL 100 MG TABLET PO SCH ×3 (10:05→21:11)
[2020-09-25] MEDS: BACITRACIN 28 GM OINTMENT TP SCH ×2 (10:05→17:30)
[2020-09-25] MEDS: THIAMINE 100 MG TABLET PO SCH (10:05)
[2020-09-25 16:21] VITALS: BP 106/66
[2020-09-25] MEDS: MAG HYDROX/AL HYDROX/SIMETH ES 30 ML SUSPENSION UDCUP PO PRN (21:51)
[2020-09-26 00:50] VITALS: BP 109/73
[2020-09-26] MEDS: FOLIC ACID 1 MG TABLET PO SCH (09:00)
[2020-09-26] MEDS: ChlorproMAZINE HCL 100 MG TABLET PO SCH ×3 (09:15→20:17)
[2020-09-26] MEDS: DIVALPROEX SODIUM 500 MG ER TABLET PO SCH ×3 (09:15→20:17)
[2020-09-26] MEDS: RisperiDONE 2 MG TABLET PO SCH ×3 (09:15→20:17)
[2020-09-26] MEDS: THIAMINE 100 MG TABLET PO SCH (09:15)
[2020-09-26] MEDS: BACITRACIN 28 GM OINTMENT TP SCH ×2 (09:15→16:26)
[2020-09-26 09:54] VITALS: BP 100/61
[2020-09-26 16:15] VITALS: BP 121/77
[2020-09-26] MEDS: LORazepam 2 MG TABLET PO PRN (17:12)
[2020-09-27 00:58] VITALS: BP 119/78
[2020-09-27] MEDS: LORazepam 2 MG TABLET PO PRN ×2 (06:51→11:24)
[2020-09-27] MEDS: HALOPERIDOL 5 MG TABLET PO PRN ×2 (06:51→11:24)
[2020-09-27 08:21] VITALS: BP 113/63
[2020-09-27] MEDS: BACITRACIN 28 GM OINTMENT TP SCH ×3 (09:00→16:48)
[2020-09-27] MEDS: FOLIC ACID 1 MG TABLET PO SCH (09:00)
[2020-09-27] MEDS: ChlorproMAZINE HCL 100 MG TABLET PO SCH ×3 (09:19→20:04)
[2020-09-27] MEDS: THIAMINE 100 MG TABLET PO SCH (09:20)
[2020-09-27] MEDS: RisperiDONE 2 MG TABLET PO SCH ×3 (09:20→20:04)
[2020-09-27] MEDS: DIVALPROEX SODIUM 500 MG ER TABLET PO SCH ×3 (09:20→20:04)
[2020-09-27 18:01] VITALS: BP 110/67
[2020-09-27] MEDS: MAG HYDROX/AL HYDROX/SIMETH ES 30 ML SUSPENSION UDCUP PO PRN (20:17)
[2020-09-28 00:21] VITALS: BP 105/65
[2020-09-28 08:02] LABS: COVID AG,FIA SOURCE NASOPHARYNGEAL
[2020-09-28 08:24] VITALS: BP 104/60
[2020-09-28] MEDS: FOLIC ACID 1 MG TABLET PO SCH (09:00)
[2020-09-28] MEDS: THIAMINE 100 MG TABLET PO SCH (09:43)
[2020-09-28] MEDS: RisperiDONE 2 MG TABLET PO SCH ×3 (09:43→20:07)
[2020-09-28] MEDS: ChlorproMAZINE HCL 100 MG TABLET PO SCH ×3 (09:43→20:07)
[2020-09-28] MEDS: DIVALPROEX SODIUM 500 MG ER TABLET PO SCH ×3 (09:43→20:07)
[2020-09-28] MEDS: BACITRACIN 28 GM OINTMENT TP SCH ×2 (09:44→16:37)
[2020-09-28 16:19] VITALS: BP 110/73
[2020-09-28 23:59] VITALS: BP 117/68
[2020-09-29 08:30] VITALS: BP 110/68
[2020-09-29] MEDS: DIVALPROEX SODIUM 500 MG ER TABLET PO SCH ×3 (09:14→20:44)
[2020-09-29] MEDS: FOLIC ACID 1 MG TABLET PO SCH (09:14)
[2020-09-29] MEDS: ChlorproMAZINE HCL 100 MG TABLET PO SCH ×3 (09:14→20:44)
[2020-09-29] MEDS: THIAMINE 100 MG TABLET PO SCH (09:14)
[2020-09-29] MEDS: RisperiDONE 2 MG TABLET PO SCH ×3 (09:14→20:44)
[2020-09-29] MEDS: BACITRACIN 28 GM OINTMENT TP SCH ×2 (09:14→16:50)
[2020-09-29] MEDS: HALOPERIDOL 5 MG TABLET PO PRN (13:13)
[2020-09-29] MEDS: LORazepam 2 MG TABLET PO PRN (13:13)
[2020-09-29 16:21] VITALS: BP 110/72
[2020-09-30 01:20] VITALS: BP 102/62
[2020-09-30 08:17] VITALS: BP 106/60
[2020-09-30] MEDS: RisperiDONE 2 MG TABLET PO SCH ×3 (08:51→20:31)
[2020-09-30] MEDS: THIAMINE 100 MG TABLET PO SCH (08:51)
[2020-09-30] MEDS: DIVALPROEX SODIUM 500 MG ER TABLET PO SCH ×3 (08:51→20:31)
[2020-09-30] MEDS: ChlorproMAZINE HCL 100 MG TABLET PO SCH ×3 (08:51→20:18)
[2020-09-30] MEDS: BACITRACIN 28 GM OINTMENT TP SCH ×2 (08:52→17:40)
[2020-09-30] MEDS: FOLIC ACID 1 MG TABLET PO SCH (08:56)
[2020-09-30] MEDS: HALOPERIDOL 5 MG TABLET PO PRN ×2 (09:18→16:43)
[2020-09-30] MEDS ORDERED: HALOPERIDOL LACTATE 5 MG/ML VIAL IM ONE (11:30)
[2020-09-30] MEDS ORDERED: LORazepam 2 MG/ML VIAL IM ONE (11:30)
[2020-09-30] MEDS ORDERED: DiphenhydrAMINE HCL 50 MG/ML VIAL IM ONE (11:30)
[2020-09-30] MEDS: LORazepam 2 MG TABLET PO PRN ×2 (11:37→16:43)
[2020-09-30 16:23] VITALS: BP 112/64
[2020-10-01 00:13] VITALS: BP 117/65
[2020-10-01 08:16] VITALS: BP 108/70
[2020-10-01] MEDS: RisperiDONE 2 MG TABLET PO SCH ×3 (09:23→20:33)
[2020-10-01] MEDS: THIAMINE 100 MG TABLET PO SCH (09:23)
[2020-10-01] MEDS: DIVALPROEX SODIUM 500 MG ER TABLET PO SCH ×3 (09:23→20:33)
[2020-10-01] MEDS: FOLIC ACID 1 MG TABLET PO SCH (09:23)
[2020-10-01] MEDS: ChlorproMAZINE HCL 100 MG TABLET PO SCH ×3 (09:24→20:33)
[2020-10-01] MEDS: HALOPERIDOL 5 MG TABLET PO PRN (09:24)
[2020-10-01] MEDS: LORazepam 2 MG TABLET PO PRN (09:24)
[2020-10-01] MEDS: BACITRACIN 28 GM OINTMENT TP SCH (09:37)
[2020-10-01 16:10] VITALS: BP 116/77
[2020-10-01] MEDS ORDERED: BACITRACIN 28 GM OINTMENT TP PRN (16:45)
[2020-10-01] MEDS: MAG HYDROX/AL HYDROX/SIMETH ES 30 ML SUSPENSION UDCUP PO PRN (20:33)
[2020-10-02 06:03] VITALS: BP 114/65
[2020-10-02] MEDS: RisperiDONE 2 MG TABLET PO SCH ×3 (08:18→20:43)
[2020-10-02] MEDS: THIAMINE 100 MG TABLET PO SCH (08:18)
[2020-10-02] MEDS: DIVALPROEX SODIUM 500 MG ER TABLET PO SCH ×3 (08:18→20:43)
[2020-10-02] MEDS: ChlorproMAZINE HCL 100 MG TABLET PO SCH ×3 (08:18→20:43)
[2020-10-02] MEDS: FOLIC ACID 1 MG TABLET PO SCH (08:19)
[2020-10-02] MEDS: LORazepam 2 MG TABLET PO PRN ×2 (08:19→12:44)
[2020-10-02] MEDS: PRAMOXINE HCL/CALAMINE 177 ML BOTTLE TP SCH (08:19)
[2020-10-02] MEDS: HALOPERIDOL 5 MG TABLET PO PRN (08:19)
[2020-10-02 08:25] VITALS: BP 117/74
[2020-10-02 16:12] VITALS: BP 110/74
[2020-10-03 00:12] VITALS: BP 117/74
[2020-10-03 08:28] VITALS: BP 112/69
[2020-10-03] MEDS: LORazepam 2 MG TABLET PO PRN ×2 (08:36→20:32)
[2020-10-03] MEDS: PRAMOXINE HCL/CALAMINE 177 ML BOTTLE TP SCH (08:36)
[2020-10-03] MEDS: HALOPERIDOL 5 MG TABLET PO PRN ×2 (08:36→20:32)
[2020-10-03] MEDS: DIVALPROEX SODIUM 500 MG ER TABLET PO SCH ×3 (09:13→20:32)
[2020-10-03] MEDS: THIAMINE 100 MG TABLET PO SCH (09:13)
[2020-10-03] MEDS: RisperiDONE 2 MG TABLET PO SCH ×3 (09:13→20:32)
[2020-10-03] MEDS: ChlorproMAZINE HCL 100 MG TABLET PO SCH ×3 (09:13→20:32)
[2020-10-03] MEDS: FOLIC ACID 1 MG TABLET PO SCH (09:13)
[2020-10-03] MEDS: MAGNESIUM HYDROXIDE SUSPENSION 30 ML UDCUP PO PRN (14:32)
[2020-10-03 16:12] VITALS: BP 113/70
[2020-10-04 00:19] VITALS: BP 115/61
[2020-10-04] MEDS: MAGNESIUM HYDROXIDE SUSPENSION 30 ML UDCUP PO PRN (07:14)
[2020-10-04 08:23] VITALS: BP 115/68
[2020-10-04] MEDS: DIVALPROEX SODIUM 500 MG ER TABLET PO SCH ×3 (09:03→21:16)
[2020-10-04] MEDS: FOLIC ACID 1 MG TABLET PO SCH (09:04)
[2020-10-04] MEDS: RisperiDONE 2 MG TABLET PO SCH ×3 (09:04→21:16)
[2020-10-04] MEDS: THIAMINE 100 MG TABLET PO SCH (09:04)
[2020-10-04] MEDS: ChlorproMAZINE HCL 100 MG TABLET PO SCH ×3 (10:20→21:29)
[2020-10-04] MEDS: PRAMOXINE HCL/CALAMINE 177 ML BOTTLE TP SCH (10:21)
[2020-10-04] MEDS: HALOPERIDOL 5 MG TABLET PO PRN (15:24)
[2020-10-04] MEDS: LORazepam 2 MG TABLET PO PRN (15:24)
[2020-10-04 16:18] VITALS: BP 101/57
[2020-10-04] MEDS: MAG HYDROX/AL HYDROX/SIMETH ES 30 ML SUSPENSION UDCUP PO PRN (22:05)
[2020-10-05 05:30] VITALS: BP 109/62
[2020-10-05 07:19] LABS: COVID AG,FIA SOURCE NASOPHARYNGEAL
[2020-10-05 08:18] VITALS: BP 106/66
[2020-10-05] MEDS: HALOPERIDOL 5 MG TABLET PO PRN (08:18)
[2020-10-05] MEDS: DIVALPROEX SODIUM 500 MG ER TABLET PO SCH ×3 (08:18→20:41)
[2020-10-05] MEDS: LORazepam 2 MG TABLET PO PRN (08:18)
[2020-10-05] MEDS: THIAMINE 100 MG TABLET PO SCH (08:18)
[2020-10-05] MEDS: RisperiDONE 2 MG TABLET PO SCH ×3 (08:18→20:38)
[2020-10-05] MEDS: FOLIC ACID 1 MG TABLET PO SCH (08:18)
[2020-10-05] MEDS: PRAMOXINE HCL/CALAMINE 177 ML BOTTLE TP SCH (08:20)
[2020-10-05] MEDS: ChlorproMAZINE HCL 100 MG TABLET PO SCH ×3 (08:22→20:38)
[2020-10-05] MEDS: MAGNESIUM HYDROXIDE SUSPENSION 30 ML UDCUP PO PRN (15:59)
[2020-10-05 16:19] VITALS: BP 113/68
[2020-10-06 05:27] VITALS: BP 105/61
[2020-10-06 08:27] VITALS: BP 115/73
[2020-10-06] MEDS: ChlorproMAZINE HCL 100 MG TABLET PO SCH ×3 (08:35→20:36)
[2020-10-06] MEDS: DIVALPROEX SODIUM 500 MG ER TABLET PO SCH ×3 (08:35→20:36)
[2020-10-06] MEDS: RisperiDONE 2 MG TABLET PO SCH ×3 (08:35→20:36)
[2020-10-06] MEDS: THIAMINE 100 MG TABLET PO SCH (08:35)
[2020-10-06] MEDS: FOLIC ACID 1 MG TABLET PO SCH (08:35)
[2020-10-06] MEDS: PRAMOXINE HCL/CALAMINE 177 ML BOTTLE TP SCH (08:36)
[2020-10-06] MEDS: LORazepam 2 MG TABLET PO PRN (13:08)
[2020-10-06] MEDS: HALOPERIDOL 5 MG TABLET PO PRN (13:08)
[2020-10-06 17:02] VITALS: BP 111/70
[2020-10-07 05:42] VITALS: BP 108/67
[2020-10-07 08:11] VITALS: BP 110/68
[2020-10-07] MEDS: ChlorproMAZINE HCL 100 MG TABLET PO SCH ×3 (08:11→20:33)
[2020-10-07] MEDS: RisperiDONE 2 MG TABLET PO SCH ×3 (08:11→20:33)
[2020-10-07] MEDS: PRAMOXINE HCL/CALAMINE 177 ML BOTTLE TP SCH (08:11)
[2020-10-07] MEDS: THIAMINE 100 MG TABLET PO SCH (08:11)
[2020-10-07] MEDS: DIVALPROEX SODIUM 500 MG ER TABLET PO SCH ×3 (08:11→20:33)
[2020-10-07] MEDS: LORazepam 2 MG TABLET PO PRN (09:24)
[2020-10-07] MEDS: HALOPERIDOL 5 MG TABLET PO PRN (09:24)
[2020-10-07] MEDS: FOLIC ACID 1 MG TABLET PO SCH (09:25)
[2020-10-07] MEDS: NICOTINE POLACRILEX 2 MG LOZENGE PO PRN (16:05)
[2020-10-07 16:29] VITALS: BP 102/62
[2020-10-08 02:07] VITALS: BP 108/61
[2020-10-08] MEDS: NICOTINE POLACRILEX 2 MG LOZENGE PO PRN ×3 (05:45→12:44)
[2020-10-08 08:34] VITALS: BP 114/71
[2020-10-08] MEDS: LORazepam 2 MG TABLET PO PRN (08:47)
[2020-10-08] MEDS: THIAMINE 100 MG TABLET PO SCH (08:48)
[2020-10-08] MEDS: DIVALPROEX SODIUM 500 MG ER TABLET PO SCH ×3 (08:48→20:23)
[2020-10-08] MEDS: HALOPERIDOL 5 MG TABLET PO PRN (08:49)
[2020-10-08] MEDS: FOLIC ACID 1 MG TABLET PO SCH (08:49)
[2020-10-08] MEDS: RisperiDONE 2 MG TABLET PO SCH ×3 (08:49→20:23)
[2020-10-08] MEDS: PRAMOXINE HCL/CALAMINE 177 ML BOTTLE TP SCH (09:00)
[2020-10-08] MEDS: ChlorproMAZINE HCL 100 MG TABLET PO SCH ×3 (09:00→20:23)
[2020-10-08 16:06] VITALS: BP 109/74
[2020-10-09 00:28] VITALS: BP 96/62
[2020-10-09] MEDS: RisperiDONE 2 MG TABLET PO SCH ×3 (08:29→20:07)
[2020-10-09] MEDS: ChlorproMAZINE HCL 100 MG TABLET PO SCH ×3 (08:29→20:07)
[2020-10-09] MEDS: FOLIC ACID 1 MG TABLET PO SCH (08:29)
[2020-10-09] MEDS: DIVALPROEX SODIUM 500 MG ER TABLET PO SCH ×3 (08:29→20:07)
[2020-10-09] MEDS: THIAMINE 100 MG TABLET PO SCH (08:30)
[2020-10-09] MEDS: LORazepam 2 MG TABLET PO PRN ×2 (08:30→16:35)
[2020-10-09] MEDS: HALOPERIDOL 5 MG TABLET PO PRN ×2 (08:30→16:35)
[2020-10-09] MEDS: NICOTINE POLACRILEX 2 MG LOZENGE PO PRN ×2 (08:33→13:49)
[2020-10-09 08:49] VITALS: BP 106/65
[2020-10-09] MEDS: PRAMOXINE HCL/CALAMINE 177 ML BOTTLE TP SCH (09:30)
[2020-10-09 16:12] VITALS: BP 108/69
[2020-10-10 00:21] VITALS: BP 111/75
[2020-10-10 08:27] VITALS: BP 112/72
[2020-10-10] MEDS: LORazepam 2 MG TABLET PO PRN ×2 (08:35→16:52)
[2020-10-10] MEDS: FOLIC ACID 1 MG TABLET PO SCH (08:35)
[2020-10-10] MEDS: HALOPERIDOL 5 MG TABLET PO PRN ×2 (08:35→16:52)
[2020-10-10] MEDS: THIAMINE 100 MG TABLET PO SCH (08:35)
[2020-10-10] MEDS: ChlorproMAZINE HCL 100 MG TABLET PO SCH ×3 (08:35→20:01)
[2020-10-10] MEDS: RisperiDONE 2 MG TABLET PO SCH ×3 (08:35→20:02)
[2020-10-10] MEDS: DIVALPROEX SODIUM 500 MG ER TABLET PO SCH ×3 (08:35→20:02)
[2020-10-10] MEDS: NICOTINE POLACRILEX 2 MG LOZENGE PO PRN ×3 (09:10→17:57)
[2020-10-10] MEDS: PRAMOXINE HCL/CALAMINE 177 ML BOTTLE TP SCH (10:05)
[2020-10-10 16:11] VITALS: BP 134/85
[2020-10-10] MEDS: ZOLPIDEM TARTRATE 10 MG TABLET PO PRN (20:02)
[2020-10-11 05:33] VITALS: BP 124/81
[2020-10-11 08:33] VITALS: BP 113/66
[2020-10-11] MEDS: THIAMINE 100 MG TABLET PO SCH (08:33)
[2020-10-11] MEDS: RisperiDONE 2 MG TABLET PO SCH ×3 (08:33→20:37)
[2020-10-11] MEDS: ChlorproMAZINE HCL 100 MG TABLET PO SCH ×3 (08:33→20:37)
[2020-10-11] MEDS: DIVALPROEX SODIUM 500 MG ER TABLET PO SCH ×3 (08:33→20:37)
[2020-10-11] MEDS: NICOTINE POLACRILEX 2 MG LOZENGE PO PRN ×2 (08:33→13:05)
[2020-10-11] MEDS: FOLIC ACID 1 MG TABLET PO SCH (08:33)
[2020-10-11] MEDS: PRAMOXINE HCL/CALAMINE 177 ML BOTTLE TP SCH (08:34)
[2020-10-11] MEDS: LORazepam 2 MG TABLET PO PRN ×2 (09:09→20:42)
[2020-10-11 16:09] VITALS: BP 122/78
[2020-10-11] MEDS: MAG HYDROX/AL HYDROX/SIMETH ES 30 ML SUSPENSION UDCUP PO PRN (20:47)
[2020-10-12] VITALS: BP 92/58
[2020-10-12 07:54] LABS: COVID AG,FIA SOURCE NASOPHARYNGEAL
[2020-10-12 08:11] VITALS: BP 115/81
[2020-10-12] MEDS: FOLIC ACID 1 MG TABLET PO SCH (08:17)
[2020-10-12] MEDS: RisperiDONE 2 MG TABLET PO SCH ×3 (08:17→20:13)
[2020-10-12] MEDS: NICOTINE POLACRILEX 2 MG LOZENGE PO PRN (08:17)
[2020-10-12] MEDS: HALOPERIDOL 5 MG TABLET PO PRN ×2 (08:18→16:55)
[2020-10-12] MEDS: DIVALPROEX SODIUM 500 MG ER TABLET PO SCH ×3 (08:18→20:13)
[2020-10-12] MEDS: ChlorproMAZINE HCL 100 MG TABLET PO SCH ×3 (08:18→20:13)
[2020-10-12] MEDS: THIAMINE 100 MG TABLET PO SCH (08:18)
[2020-10-12] MEDS: LORazepam 2 MG TABLET PO PRN ×2 (08:18→16:55)
[2020-10-12] MEDS ORDERED: LORazepam 2 MG/ML VIAL IM ONE (10:00)
[2020-10-12] MEDS ORDERED: HALOPERIDOL LACTATE 5 MG/ML VIAL IM ONE (10:00)
[2020-10-12] MEDS ORDERED: DiphenhydrAMINE HCL 50 MG/ML VIAL IM ONE (10:00)
[2020-10-12] MEDS: PRAMOXINE HCL/CALAMINE 177 ML BOTTLE TP SCH (10:08)
[2020-10-12 16:16] VITALS: BP 110/68
[2020-10-13 00:53] VITALS: BP 119/74
[2020-10-13 08:06] VITALS: BP 102/64
[2020-10-13] MEDS: DIVALPROEX SODIUM 500 MG ER TABLET PO SCH ×3 (08:27→20:15)
[2020-10-13] MEDS: HALOPERIDOL 5 MG TABLET PO PRN ×3 (08:27→20:15)
[2020-10-13] MEDS: LORazepam 2 MG TABLET PO PRN ×3 (08:27→20:15)
[2020-10-13] MEDS: ChlorproMAZINE HCL 100 MG TABLET PO SCH ×3 (08:28→20:15)
[2020-10-13] MEDS: THIAMINE 100 MG TABLET PO SCH (08:28)
[2020-10-13] MEDS: FOLIC ACID 1 MG TABLET PO SCH (08:28)
[2020-10-13] MEDS: RisperiDONE 2 MG TABLET PO SCH ×3 (08:28→20:15)
[2020-10-13] MEDS: PRAMOXINE HCL/CALAMINE 177 ML BOTTLE TP SCH (08:29)
[2020-10-13 16:15] VITALS: BP 112/60
[2020-10-14 00:43] VITALS: BP 118/66
[2020-10-14] MEDS: HALOPERIDOL 5 MG TABLET PO PRN ×2 (06:04→10:53)
[2020-10-14] MEDS: LORazepam 2 MG TABLET PO PRN ×2 (06:04→10:53)
[2020-10-14 08:27] VITALS: BP 118/75
[2020-10-14] MEDS: RisperiDONE 2 MG TABLET PO SCH ×3 (09:02→20:17)
[2020-10-14] MEDS: DIVALPROEX SODIUM 500 MG ER TABLET PO SCH ×3 (09:02→20:18)
[2020-10-14] MEDS: ChlorproMAZINE HCL 100 MG TABLET PO SCH ×3 (09:02→20:18)
[2020-10-14] MEDS: THIAMINE 100 MG TABLET PO SCH (09:02)
[2020-10-14] MEDS: FOLIC ACID 1 MG TABLET PO SCH (09:02)
[2020-10-14] MEDS: PRAMOXINE HCL/CALAMINE 177 ML BOTTLE TP SCH (09:03)
[2020-10-14] MEDS: NICOTINE POLACRILEX 2 MG LOZENGE PO PRN (12:47)
[2020-10-14 16:01] VITALS: BP 109/62
[2020-10-15 06:20] VITALS: BP 106/70
[2020-10-15] MEDS: LORazepam 2 MG TABLET PO PRN ×2 (08:15→12:54)
[2020-10-15] MEDS: NICOTINE POLACRILEX 2 MG LOZENGE PO PRN ×2 (08:15→14:28)
[2020-10-15] MEDS: RisperiDONE 2 MG TABLET PO SCH ×3 (08:15→20:54)
[2020-10-15] MEDS: HALOPERIDOL 5 MG TABLET PO PRN (08:15)
[2020-10-15 08:16] VITALS: BP 113/73
[2020-10-15] MEDS: DIVALPROEX SODIUM 500 MG ER TABLET PO SCH ×3 (08:16→20:54)
[2020-10-15] MEDS: FOLIC ACID 1 MG TABLET PO SCH (08:16)
[2020-10-15] MEDS: THIAMINE 100 MG TABLET PO SCH (08:16)
[2020-10-15] MEDS: ChlorproMAZINE HCL 100 MG TABLET PO SCH ×3 (10:00→20:54)
[2020-10-15] MEDS: PRAMOXINE HCL/CALAMINE 177 ML BOTTLE TP SCH (10:01)
[2020-10-15 16:13] VITALS: BP 118/70
[2020-10-16 00:19] VITALS: BP 115/76
[2020-10-16 08:07] VITALS: BP 119/74
[2020-10-16] MEDS: LORazepam 2 MG TABLET PO PRN (08:54)
[2020-10-16] MEDS: HALOPERIDOL 5 MG TABLET PO PRN (08:54)
[2020-10-16] MEDS: DIVALPROEX SODIUM 500 MG ER TABLET PO SCH ×3 (08:54→20:34)
[2020-10-16] MEDS: THIAMINE 100 MG TABLET PO SCH (08:54)
[2020-10-16] MEDS: RisperiDONE 2 MG TABLET PO SCH ×3 (08:54→20:35)
[2020-10-16] MEDS: FOLIC ACID 1 MG TABLET PO SCH (08:54)
[2020-10-16] MEDS: ChlorproMAZINE HCL 100 MG TABLET PO SCH ×3 (09:02→20:34)
[2020-10-16] MEDS: PRAMOXINE HCL/CALAMINE 177 ML BOTTLE TP SCH (09:18)
[2020-10-16] MEDS: NICOTINE POLACRILEX 2 MG LOZENGE PO PRN (13:05)
[2020-10-16 16:04] VITALS: BP 101/63
[2020-10-17 05:32] VITALS: BP_SYST 60
[2020-10-17] MEDS: LORazepam 2 MG TABLET PO PRN ×2 (08:07→16:19)
[2020-10-17] MEDS: HALOPERIDOL 5 MG TABLET PO PRN ×2 (08:07→14:51)
[2020-10-17] MEDS: RisperiDONE 2 MG TABLET PO SCH ×3 (08:07→20:18)
[2020-10-17] MEDS: THIAMINE 100 MG TABLET PO SCH (08:07)
[2020-10-17] MEDS: ChlorproMAZINE HCL 100 MG TABLET PO SCH ×3 (08:07→20:19)
[2020-10-17] MEDS: FOLIC ACID 1 MG TABLET PO SCH (08:07)
[2020-10-17] MEDS: DIVALPROEX SODIUM 500 MG ER TABLET PO SCH ×3 (08:07→20:18)
[2020-10-17 08:17] VITALS: BP 112/74
[2020-10-17] MEDS: PRAMOXINE HCL/CALAMINE 177 ML BOTTLE TP SCH (08:56)
[2020-10-17] MEDS: NICOTINE POLACRILEX 2 MG LOZENGE PO PRN ×2 (08:57→14:06)
[2020-10-17 16:06] VITALS: BP 123/81
[2020-10-17] MEDS: MAG HYDROX/AL HYDROX/SIMETH ES 30 ML SUSPENSION UDCUP PO PRN (20:47)
[2020-10-18 00:11] VITALS: BP 102/63
[2020-10-18] MEDS: FOLIC ACID 1 MG TABLET PO SCH (08:02)
[2020-10-18] MEDS: RisperiDONE 2 MG TABLET PO SCH ×3 (08:02→20:11)
[2020-10-18] MEDS: ChlorproMAZINE HCL 100 MG TABLET PO SCH ×3 (08:02→20:11)
[2020-10-18] MEDS: DIVALPROEX SODIUM 500 MG ER TABLET PO SCH ×3 (08:02→20:11)
[2020-10-18] MEDS: THIAMINE 100 MG TABLET PO SCH (08:02)
[2020-10-18] MEDS: PRAMOXINE HCL/CALAMINE 177 ML BOTTLE TP SCH (08:03)
[2020-10-18 08:17] VITALS: BP 117/77
[2020-10-18] MEDS: LORazepam 2 MG TABLET PO PRN (09:34)
[2020-10-18] MEDS: HALOPERIDOL 5 MG TABLET PO PRN (09:34)
[2020-10-18] MEDS: NICOTINE POLACRILEX 2 MG LOZENGE PO PRN ×2 (11:01→16:08)
[2020-10-18 16:13] VITALS: BP 107/70
[2020-10-19 00:14] VITALS: BP 117/73
[2020-10-19] MEDS: FOLIC ACID 1 MG TABLET PO SCH (08:12)
[2020-10-19] MEDS: PRAMOXINE HCL/CALAMINE 177 ML BOTTLE TP SCH (08:12)
[2020-10-19] MEDS: DIVALPROEX SODIUM 500 MG ER TABLET PO SCH ×3 (08:12→20:35)
[2020-10-19] MEDS: THIAMINE 100 MG TABLET PO SCH (08:12)
[2020-10-19] MEDS: RisperiDONE 2 MG TABLET PO SCH ×3 (08:12→20:35)
[2020-10-19] MEDS: ChlorproMAZINE HCL 100 MG TABLET PO SCH ×3 (08:12→20:35)
[2020-10-19 08:13] VITALS: BP 104/62
[2020-10-19 08:20] LABS: COVID AG,FIA SOURCE NASOPHARYNGEAL
[2020-10-19] MEDS: LORazepam 2 MG TABLET PO PRN (10:34)
[2020-10-19] MEDS: NICOTINE POLACRILEX 2 MG LOZENGE PO PRN (12:33)
[2020-10-19 16:09] VITALS: BP 112/72
[2020-10-20 01:24] VITALS: BP 102/62
[2020-10-20] MEDS: THIAMINE 100 MG TABLET PO SCH (08:28)
[2020-10-20] MEDS: DIVALPROEX SODIUM 500 MG ER TABLET PO SCH ×3 (08:28→20:24)
[2020-10-20] MEDS: FOLIC ACID 1 MG TABLET PO SCH (08:28)
[2020-10-20] MEDS: RisperiDONE 2 MG TABLET PO SCH ×3 (08:29→20:24)
[2020-10-20] MEDS: ChlorproMAZINE HCL 100 MG TABLET PO SCH ×3 (08:29→20:24)
[2020-10-20] MEDS: PRAMOXINE HCL/CALAMINE 177 ML BOTTLE TP SCH (08:29)
[2020-10-20] MEDS: LORazepam 2 MG TABLET PO PRN ×2 (08:38→21:03)
[2020-10-20 08:54] VITALS: BP 114/81
[2020-10-20] MEDS: NICOTINE POLACRILEX 2 MG LOZENGE PO PRN (15:39)
[2020-10-20 17:22] VITALS: BP 119/78
[2020-10-21 01:39] VITALS: BP 112/64
[2020-10-21 08:06] VITALS: BP 108/68
[2020-10-21] MEDS: DIVALPROEX SODIUM 500 MG ER TABLET PO SCH ×3 (08:35→20:39)
[2020-10-21] MEDS: ChlorproMAZINE HCL 100 MG TABLET PO SCH ×3 (08:35→20:40)
[2020-10-21] MEDS: FOLIC ACID 1 MG TABLET PO SCH (08:35)
[2020-10-21] MEDS: RisperiDONE 2 MG TABLET PO SCH ×3 (08:35→20:39)
[2020-10-21] MEDS: THIAMINE 100 MG TABLET PO SCH (08:35)
[2020-10-21] MEDS: HALOPERIDOL 5 MG TABLET PO PRN ×2 (08:36→17:53)
[2020-10-21] MEDS: LORazepam 2 MG TABLET PO PRN ×2 (08:36→17:53)
[2020-10-21] MEDS: PRAMOXINE HCL/CALAMINE 177 ML BOTTLE TP SCH (09:47)
[2020-10-21] MEDS: NICOTINE POLACRILEX 2 MG LOZENGE PO PRN ×2 (10:00→15:27)
[2020-10-21 16:09] VITALS: BP 128/81
[2020-10-22 00:29] VITALS: BP 126/67
[2020-10-22] MEDS: RisperiDONE 2 MG TABLET PO SCH ×3 (08:05→20:13)
[2020-10-22] MEDS: FOLIC ACID 1 MG TABLET PO SCH (08:05)
[2020-10-22] MEDS: DIVALPROEX SODIUM 500 MG ER TABLET PO SCH ×3 (08:05→20:13)
[2020-10-22] MEDS: THIAMINE 100 MG TABLET PO SCH (08:05)
[2020-10-22] MEDS: PRAMOXINE HCL/CALAMINE 177 ML BOTTLE TP SCH (08:06)
[2020-10-22] MEDS: ChlorproMAZINE HCL 100 MG TABLET PO SCH ×3 (08:07→20:13)
[2020-10-22 08:18] VITALS: BP 112/69
[2020-10-22] MEDS: NICOTINE POLACRILEX 2 MG LOZENGE PO PRN ×2 (10:08→15:55)
[2020-10-22] MEDS: LORazepam 2 MG TABLET PO PRN (14:37)
[2020-10-22] MEDS: HALOPERIDOL 5 MG TABLET PO PRN (15:55)
[2020-10-22 16:20] VITALS: BP 119/78
[2020-10-23 03:56] VITALS: BP 112/72
[2020-10-23] MEDS: THIAMINE 100 MG TABLET PO SCH (08:23)
[2020-10-23] MEDS: DIVALPROEX SODIUM 500 MG ER TABLET PO SCH ×3 (08:23→20:35)
[2020-10-23 08:24] VITALS: BP 114/71
[2020-10-23] MEDS: ChlorproMAZINE HCL 100 MG TABLET PO SCH ×3 (08:24→20:35)
[2020-10-23] MEDS: FOLIC ACID 1 MG TABLET PO SCH (08:24)
[2020-10-23] MEDS: RisperiDONE 2 MG TABLET PO SCH ×3 (08:24→20:35)
[2020-10-23] MEDS: PRAMOXINE HCL/CALAMINE 177 ML BOTTLE TP SCH (09:09)
[2020-10-23] MEDS: HALOPERIDOL 5 MG TABLET PO PRN (09:47)
[2020-10-23] MEDS: LORazepam 2 MG TABLET PO PRN (09:47)
[2020-10-23] MEDS ORDERED: LORazepam 2 MG/ML VIAL IM ONE (10:30)
[2020-10-23] MEDS ORDERED: HALOPERIDOL LACTATE 5 MG/ML VIAL IM ONE (10:30)
[2020-10-23] MEDS ORDERED: DiphenhydrAMINE HCL 50 MG/ML VIAL IM ONE (10:30)
[2020-10-23 13:32] VITALS: BP 125/82
[2020-10-23 16:03] VITALS: BP 118/75
[2020-10-24 00:36] VITALS: BP 116/78
[2020-10-24 08:20] VITALS: BP 118/64
[2020-10-24] MEDS: THIAMINE 100 MG TABLET PO SCH (09:16)
[2020-10-24] MEDS: LORazepam 2 MG TABLET PO PRN (09:16)
[2020-10-24] MEDS: ChlorproMAZINE HCL 100 MG TABLET PO SCH ×3 (09:16→21:11)
[2020-10-24] MEDS: RisperiDONE 2 MG TABLET PO SCH ×3 (09:16→20:58)
[2020-10-24] MEDS: FOLIC ACID 1 MG TABLET PO SCH (09:16)
[2020-10-24] MEDS: PRAMOXINE HCL/CALAMINE 177 ML BOTTLE TP SCH (09:16)
[2020-10-24] MEDS: DIVALPROEX SODIUM 500 MG ER TABLET PO SCH ×3 (09:16→20:58)
[2020-10-24] MEDS: NICOTINE POLACRILEX 2 MG LOZENGE PO PRN ×2 (10:05→15:39)
[2020-10-24 16:06] VITALS: BP 106/60
[2020-10-24] MEDS: ZOLPIDEM TARTRATE 10 MG TABLET PO PRN (20:58)
[2020-10-25 04:39] VITALS: BP 115/62
[2020-10-25] MEDS: ChlorproMAZINE HCL 100 MG TABLET PO SCH ×3 (08:10→20:39)
[2020-10-25] MEDS: FOLIC ACID 1 MG TABLET PO SCH (08:10)
[2020-10-25] MEDS: LORazepam 2 MG TABLET PO PRN (08:10)
[2020-10-25] MEDS: RisperiDONE 2 MG TABLET PO SCH ×3 (08:10→20:39)
[2020-10-25] MEDS: DIVALPROEX SODIUM 500 MG ER TABLET PO SCH ×3 (08:10→20:39)
[2020-10-25] MEDS: THIAMINE 100 MG TABLET PO SCH (08:10)
[2020-10-25] MEDS: PRAMOXINE HCL/CALAMINE 177 ML BOTTLE TP SCH (08:12)
[2020-10-25 08:22] VITALS: BP 110/69
[2020-10-25] MEDS: HALOPERIDOL 5 MG TABLET PO PRN (08:38)
[2020-10-25] MEDS: NICOTINE POLACRILEX 2 MG LOZENGE PO PRN (15:34)
[2020-10-25 16:10] VITALS: BP 103/73
[2020-10-26 00:14] VITALS: BP 115/75
[2020-10-26 07:16] LABS: COVID AG,FIA SOURCE NASOPHARYNGEAL
[2020-10-26] MEDS: THIAMINE 100 MG TABLET PO SCH (08:02)
[2020-10-26] MEDS: FOLIC ACID 1 MG TABLET PO SCH (08:02)
[2020-10-26] MEDS: ChlorproMAZINE HCL 100 MG TABLET PO SCH ×3 (08:02→20:40)
[2020-10-26] MEDS: LORazepam 2 MG TABLET PO PRN (08:02)
[2020-10-26] MEDS: DIVALPROEX SODIUM 500 MG ER TABLET PO SCH ×3 (08:02→20:40)
[2020-10-26] MEDS: RisperiDONE 2 MG TABLET PO SCH ×3 (08:02→20:40)
[2020-10-26] MEDS: PRAMOXINE HCL/CALAMINE 177 ML BOTTLE TP SCH (08:03)
[2020-10-26 09:15] VITALS: BP 108/68
[2020-10-26] MEDS: HALOPERIDOL 5 MG TABLET PO PRN (09:15)
[2020-10-26] MEDS: NICOTINE POLACRILEX 2 MG LOZENGE PO PRN (09:28)
[2020-10-26 16:22] VITALS: BP 105/63
[2020-10-26] MEDS: DOXYCYCLINE HYCLATE 100 MG TABLET PO SCH (21:42)
[2020-10-27 00:33] VITALS: BP 109/74
[2020-10-27] MEDS: HALOPERIDOL 5 MG TABLET PO PRN ×4 (00:39→21:31)
[2020-10-27] MEDS: LORazepam 2 MG TABLET PO PRN (00:39)
[2020-10-27] MEDS: ZOLPIDEM TARTRATE 10 MG TABLET PO PRN (02:59)
[2020-10-27 07:38] LABS: BASOPHILS % (AUTO) 0.1 % (0.0-2.0); EOSINOPHILS % (AUTO) 0.3 % (1.0-6.0); HEMATOCRIT 40.5 % (41-53); HEMOGLOBIN 13.9 g/dL (13.5-17.5); LYMPHOCYTES # (AUTO) 1.5 K/uL (1.0-4.8); LYMPHOCYTES % (AUTO) 25.8 % (22.0-44.0); MEAN CORPUSCULAR HEMOGLOBIN 31.4 pg (26.0-34.0); MEAN CORPUSCULAR HGB CONC 34.4 G/dL (31.0-37.0); MEAN CORPUSCULAR VOLUME 91 fL (80-100); MONOCYTES # (AUTO) 0.8 K/uL (0.1-1.0); MONOCYTES % (AUTO) 13.5 % (2.0-9.0); NEUTROPHILS # (AUTO) 3.4 K/uL (1.8-7.7); NEUTROPHILS % (AUTO) 60.3 % (40.0-70.0); PLATELET COUNT (AUTO) 174 K/uL (150-450); RED BLOOD CELL COUNT(AUTO) 4.44 MIL/uL (4.50-5.90); RED CELL DISTRIBUTION WIDTH 12.8 % (11.5-14.5)
[2020-10-27 08:07] VITALS: BP 108/68
[2020-10-27 08:08] LABS: APPEARANCE,URINE CLEAR (CLEAR); GLUCOSE, URINE (UA) NEGATIVE (NEGATIVE); KETONES,URINE TRACE mg/dL (NEGATIVE); LEUKOCYTE ESTERASE ,URINE NEGATIVE (NEGATIVE); NITRATE,URINE NEGATIVE (NEGATIVE); OCCULT BLOOD,URINE NEGATIVE (NEGATIVE); PH,URINE 6.5 (5.0-8.0); PROTEIN,URINE NEGATIVE (NEGATIVE)
[2020-10-27] MEDS ORDERED: LORazepam 1 MG TABLET ONE (08:10)
[2020-10-27 08:23] LABS: BILIRUBIN,URINE PRELIM. POSITIVE (NEGATIVE)
[2020-10-27] MEDS: FOLIC ACID 1 MG TABLET PO SCH (10:34)
[2020-10-27] MEDS: ChlorproMAZINE HCL 100 MG TABLET PO SCH ×3 (10:34→22:09)
[2020-10-27] MEDS: THIAMINE 100 MG TABLET PO SCH (10:34)
[2020-10-27] MEDS: DOXYCYCLINE HYCLATE 100 MG TABLET PO SCH ×2 (10:35→16:36)
[2020-10-27] MEDS: LORazepam 1 MG TABLET PO PRN ×2 (10:35→21:31)
[2020-10-27] MEDS: DIVALPROEX SODIUM 500 MG ER TABLET PO SCH ×3 (10:35→21:10)
[2020-10-27] MEDS: RisperiDONE 2 MG TABLET PO SCH ×3 (10:35→21:10)
[2020-10-27] MEDS: PRAMOXINE HCL/CALAMINE 177 ML BOTTLE TP SCH (10:35)
[2020-10-27 16:16] VITALS: BP 102/64
[2020-10-28 05:48] VITALS: BP 110/63
[2020-10-28 08:29] VITALS: BP 108/66
[2020-10-28] MEDS: LORazepam 1 MG TABLET PO PRN (09:24)
[2020-10-28] MEDS: HALOPERIDOL 5 MG TABLET PO PRN (09:24)
[2020-10-28] MEDS: THIAMINE 100 MG TABLET PO SCH (09:24)
[2020-10-28] MEDS: NICOTINE POLACRILEX 2 MG LOZENGE PO PRN ×2 (09:24→14:51)
[2020-10-28] MEDS: RisperiDONE 2 MG TABLET PO SCH ×3 (09:24→20:54)
[2020-10-28] MEDS: DIVALPROEX SODIUM 500 MG ER TABLET PO SCH ×3 (09:24→20:54)
[2020-10-28] MEDS: DOXYCYCLINE HYCLATE 100 MG TABLET PO SCH ×2 (09:24→16:51)
[2020-10-28] MEDS: ChlorproMAZINE HCL 100 MG TABLET PO SCH ×3 (09:24→20:54)
[2020-10-28] MEDS: FOLIC ACID 1 MG TABLET PO SCH (09:24)
[2020-10-28] MEDS: PRAMOXINE HCL/CALAMINE 177 ML BOTTLE TP SCH (09:26)
[2020-10-28] MEDS: MAGNESIUM HYDROXIDE SUSPENSION 30 ML UDCUP PO PRN (16:00)
[2020-10-28] MEDS: IBUPROFEN 400 MG TABLET PO PRN (16:00)
[2020-10-28 16:17] VITALS: BP 107/68
[2020-10-29 00:20] VITALS: BP 106/64
[2020-10-29 08:51] VITALS: BP 111/68
[2020-10-29] MEDS: LORazepam 2 MG TABLET PO PRN (09:14)
[2020-10-29] MEDS: DIVALPROEX SODIUM 500 MG ER TABLET PO SCH ×3 (09:14→20:43)
[2020-10-29] MEDS: THIAMINE 100 MG TABLET PO SCH (09:14)
[2020-10-29] MEDS: RisperiDONE 2 MG TABLET PO SCH ×3 (09:14→20:42)
[2020-10-29] MEDS: ChlorproMAZINE HCL 100 MG TABLET PO SCH ×3 (09:14→20:43)
[2020-10-29] MEDS: FOLIC ACID 1 MG TABLET PO SCH (09:14)
[2020-10-29] MEDS: DOXYCYCLINE HYCLATE 100 MG TABLET PO SCH ×2 (09:14→16:51)
[2020-10-29] MEDS: HALOPERIDOL 5 MG TABLET PO PRN (09:14)
[2020-10-29] MEDS: IBUPROFEN 400 MG TABLET PO PRN ×2 (09:33→20:54)
[2020-10-29] MEDS: PRAMOXINE HCL/CALAMINE 177 ML BOTTLE TP SCH (10:24)
[2020-10-29] MEDS: NICOTINE POLACRILEX 2 MG LOZENGE PO PRN (13:25)
[2020-10-29 16:21] VITALS: BP 130/75
[2020-10-29 20:56] VITALS: BP 108/67
[2020-10-30 04:59] VITALS: BP 118/62
[2020-10-30 07:06] VITALS: BP 110/72
[2020-10-30 08:22] VITALS: BP 116/61
[2020-10-30] MEDS: THIAMINE 100 MG TABLET PO SCH (08:42)
[2020-10-30] MEDS: ChlorproMAZINE HCL 100 MG TABLET PO SCH ×3 (08:42→21:10)
[2020-10-30] MEDS: FOLIC ACID 1 MG TABLET PO SCH (08:43)
[2020-10-30] MEDS: LORazepam 2 MG TABLET PO PRN ×2 (08:43→13:02)
[2020-10-30] MEDS: DIVALPROEX SODIUM 500 MG ER TABLET PO SCH ×3 (08:43→21:10)
[2020-10-30] MEDS: RisperiDONE 2 MG TABLET PO SCH ×3 (08:43→21:10)
[2020-10-30] MEDS: PRAMOXINE HCL/CALAMINE 177 ML BOTTLE TP SCH (09:51)
[2020-10-30] MEDS: DOXYCYCLINE HYCLATE 100 MG TABLET PO SCH ×2 (09:51→16:44)
[2020-10-30] MEDS: IBUPROFEN 400 MG TABLET PO PRN ×2 (09:51→21:11)
[2020-10-30] MEDS: HALOPERIDOL 5 MG TABLET PO PRN (13:02)
[2020-10-30 16:09] VITALS: BP 119/62
[2020-10-30 21:11] VITALS: BP 105/65
[2020-10-31 05:38] VITALS: BP 106/58
[2020-10-31] MEDS: FOLIC ACID 1 MG TABLET PO SCH (08:15)
[2020-10-31] MEDS: LORazepam 2 MG TABLET PO PRN (08:15)
[2020-10-31] MEDS: RisperiDONE 2 MG TABLET PO SCH ×3 (08:15→21:34)
[2020-10-31] MEDS: THIAMINE 100 MG TABLET PO SCH (08:15)
[2020-10-31 08:20] VITALS: BP 107/67
[2020-10-31] MEDS: ChlorproMAZINE HCL 100 MG TABLET PO SCH ×3 (08:36→21:34)
[2020-10-31] MEDS: DOXYCYCLINE HYCLATE 100 MG TABLET PO SCH ×2 (08:36→16:24)
[2020-10-31] MEDS: DIVALPROEX SODIUM 500 MG ER TABLET PO SCH ×3 (08:36→21:34)
[2020-10-31] MEDS: HALOPERIDOL 5 MG TABLET PO PRN (08:40)
[2020-10-31] MEDS: IBUPROFEN 400 MG TABLET PO PRN (08:40)
[2020-10-31] MEDS: PRAMOXINE HCL/CALAMINE 177 ML BOTTLE TP SCH (09:46)
[2020-10-31] MEDS: NICOTINE POLACRILEX 2 MG LOZENGE PO PRN ×2 (10:14→16:30)
[2020-10-31 16:19] VITALS: BP 108/67
[2020-11-01 03:56] VITALS: BP 115/72
[2020-11-01 08:17] VITALS: BP 114/68
[2020-11-01] MEDS: FOLIC ACID 1 MG TABLET PO SCH (08:45)
[2020-11-01] MEDS: DOXYCYCLINE HYCLATE 100 MG TABLET PO SCH ×2 (08:45→16:45)
[2020-11-01] MEDS: DIVALPROEX SODIUM 500 MG ER TABLET PO SCH ×3 (08:45→21:18)
[2020-11-01] MEDS: ChlorproMAZINE HCL 100 MG TABLET PO SCH ×3 (08:45→21:18)
[2020-11-01] MEDS: RisperiDONE 2 MG TABLET PO SCH ×3 (08:46→21:18)
[2020-11-01] MEDS: PRAMOXINE HCL/CALAMINE 177 ML BOTTLE TP SCH (08:46)
[2020-11-01] MEDS: THIAMINE 100 MG TABLET PO SCH (08:46)
[2020-11-01] MEDS: NICOTINE POLACRILEX 2 MG LOZENGE PO PRN (10:49)
[2020-11-01] MEDS: LORazepam 2 MG TABLET PO PRN (11:18)
[2020-11-01] MEDS: HALOPERIDOL 5 MG TABLET PO PRN (11:18)
[2020-11-01 16:23] VITALS: BP 109/70
[2020-11-02 08:03] LABS: COVID AG,FIA SOURCE NASOPHARYNGEAL
[2020-11-02 08:27] VITALS: BP 110/72
[2020-11-02] MEDS: DOXYCYCLINE HYCLATE 100 MG TABLET PO SCH ×2 (08:31→16:40)
[2020-11-02] MEDS: ChlorproMAZINE HCL 100 MG TABLET PO SCH ×3 (08:31→20:37)
[2020-11-02] MEDS: DIVALPROEX SODIUM 500 MG ER TABLET PO SCH ×3 (08:31→20:36)
[2020-11-02] MEDS: FOLIC ACID 1 MG TABLET PO SCH (08:31)
[2020-11-02] MEDS: THIAMINE 100 MG TABLET PO SCH (08:31)
[2020-11-02] MEDS: PRAMOXINE HCL/CALAMINE 177 ML BOTTLE TP SCH (08:32)
[2020-11-02] MEDS: HALOPERIDOL 5 MG TABLET PO PRN (09:41)
[2020-11-02] MEDS: RisperiDONE 2 MG TABLET PO SCH ×3 (09:41→20:36)
[2020-11-02] MEDS: LORazepam 2 MG TABLET PO PRN (09:41)
[2020-11-02] MEDS: NICOTINE POLACRILEX 2 MG LOZENGE PO PRN (10:09)
[2020-11-02 16:29] VITALS: BP 110/66
[2020-11-03 01:22] VITALS: BP 112/68
[2020-11-03] MEDS: HALOPERIDOL 5 MG TABLET PO PRN ×2 (01:25→12:43)
[2020-11-03] MEDS: LORazepam 2 MG TABLET PO PRN ×2 (01:25→12:43)
[2020-11-03 08:16] VITALS: BP 118/71
[2020-11-03] MEDS: DOXYCYCLINE HYCLATE 100 MG TABLET PO SCH ×2 (09:39→16:37)
[2020-11-03] MEDS: DIVALPROEX SODIUM 500 MG ER TABLET PO SCH ×3 (09:39→20:54)
[2020-11-03] MEDS: THIAMINE 100 MG TABLET PO SCH (09:39)
[2020-11-03] MEDS: ChlorproMAZINE HCL 100 MG TABLET PO SCH ×3 (09:39→20:54)
[2020-11-03] MEDS: RisperiDONE 2 MG TABLET PO SCH ×3 (09:39→20:54)
[2020-11-03] MEDS: FOLIC ACID 1 MG TABLET PO SCH (09:39)
[2020-11-03] MEDS: PRAMOXINE HCL/CALAMINE 177 ML BOTTLE TP SCH (09:39)
[2020-11-03] MEDS: NICOTINE POLACRILEX 2 MG LOZENGE PO PRN (16:07)
[2020-11-03 16:31] VITALS: BP 118/74
[2020-11-03] MEDS: MAG HYDROX/AL HYDROX/SIMETH ES 30 ML SUSPENSION UDCUP PO PRN (20:30)
[2020-11-04 06:11] VITALS: BP 109/74
[2020-11-04] MEDS: HALOPERIDOL 5 MG TABLET PO PRN (07:03)
[2020-11-04] MEDS: LORazepam 2 MG TABLET PO PRN (07:03)
[2020-11-04 08:56] VITALS: BP 117/75
[2020-11-04] MEDS: DIVALPROEX SODIUM 500 MG ER TABLET PO SCH ×3 (09:29→20:54)
[2020-11-04] MEDS: ChlorproMAZINE HCL 100 MG TABLET PO SCH ×3 (09:29→20:54)
[2020-11-04] MEDS: DOXYCYCLINE HYCLATE 100 MG TABLET PO SCH ×2 (09:29→16:33)
[2020-11-04] MEDS: THIAMINE 100 MG TABLET PO SCH (09:29)
[2020-11-04] MEDS: PRAMOXINE HCL/CALAMINE 177 ML BOTTLE TP SCH (09:29)
[2020-11-04] MEDS: FOLIC ACID 1 MG TABLET PO SCH (09:29)
[2020-11-04] MEDS: RisperiDONE 2 MG TABLET PO SCH ×3 (09:29→20:54)
[2020-11-04] MEDS: NICOTINE POLACRILEX 2 MG LOZENGE PO PRN ×2 (10:46→16:38)
[2020-11-04 16:40] VITALS: BP 112/75
[2020-11-04] MEDS: MAG HYDROX/AL HYDROX/SIMETH ES 30 ML SUSPENSION UDCUP PO PRN (20:33)
[2020-11-05 01:58] VITALS: BP 109/71
[2020-11-05 08:19] VITALS: BP 124/69
[2020-11-05] MEDS: DOXYCYCLINE HYCLATE 100 MG TABLET PO SCH ×2 (08:32→16:49)
[2020-11-05] MEDS: DIVALPROEX SODIUM 500 MG ER TABLET PO SCH ×3 (08:32→20:47)
[2020-11-05] MEDS: FOLIC ACID 1 MG TABLET PO SCH (08:32)
[2020-11-05] MEDS: THIAMINE 100 MG TABLET PO SCH (08:32)
[2020-11-05] MEDS: RisperiDONE 2 MG TABLET PO SCH ×3 (08:33→20:47)
[2020-11-05] MEDS: PRAMOXINE HCL/CALAMINE 177 ML BOTTLE TP SCH (08:33)
[2020-11-05] MEDS: ChlorproMAZINE HCL 100 MG TABLET PO SCH ×3 (08:33→20:47)
[2020-11-05] MEDS: NICOTINE POLACRILEX 2 MG LOZENGE PO PRN (15:32)
[2020-11-05 16:20] VITALS: BP 117/76
[2020-11-06 05:31] VITALS: BP 116/78
[2020-11-06] MEDS: HALOPERIDOL 5 MG TABLET PO PRN ×2 (06:36→13:42)
[2020-11-06] MEDS: LORazepam 2 MG TABLET PO PRN ×2 (06:36→13:42)
[2020-11-06 08:15] VITALS: BP 111/72
[2020-11-06] MEDS: RisperiDONE 2 MG TABLET PO SCH ×3 (08:21→20:18)
[2020-11-06] MEDS: NICOTINE POLACRILEX 2 MG LOZENGE PO PRN ×2 (08:21→13:44)
[2020-11-06] MEDS: THIAMINE 100 MG TABLET PO SCH (08:22)
[2020-11-06] MEDS: ChlorproMAZINE HCL 100 MG TABLET PO SCH ×3 (08:22→21:37)
[2020-11-06] MEDS: FOLIC ACID 1 MG TABLET PO SCH (08:22)
[2020-11-06] MEDS: DIVALPROEX SODIUM 500 MG ER TABLET PO SCH ×3 (08:22→20:18)
[2020-11-06] MEDS: PRAMOXINE HCL/CALAMINE 177 ML BOTTLE TP SCH (08:22)
[2020-11-06] MEDS: MAGNESIUM HYDROXIDE SUSPENSION 30 ML UDCUP PO PRN (14:22)
[2020-11-06] MEDS: IBUPROFEN 400 MG TABLET PO PRN (14:42)
[2020-11-06 16:20] VITALS: BP 106/75
[2020-11-07 00:53] VITALS: BP 104/66
[2020-11-07] MEDS: PETROLATUM,WHITE 28 GM JELLY TP PRN (06:47)
[2020-11-07 08:24] VITALS: BP 110/66
[2020-11-07] MEDS: THIAMINE 100 MG TABLET PO SCH (08:38)
[2020-11-07] MEDS: RisperiDONE 2 MG TABLET PO SCH ×3 (08:38→20:22)
[2020-11-07] MEDS: ChlorproMAZINE HCL 100 MG TABLET PO SCH ×3 (08:38→20:22)
[2020-11-07] MEDS: DIVALPROEX SODIUM 500 MG ER TABLET PO SCH ×3 (08:38→20:23)
[2020-11-07] MEDS: FOLIC ACID 1 MG TABLET PO SCH (08:38)
[2020-11-07] MEDS: HALOPERIDOL 5 MG TABLET PO PRN ×2 (08:39→21:05)
[2020-11-07] MEDS: PRAMOXINE HCL/CALAMINE 177 ML BOTTLE TP SCH (08:39)
[2020-11-07] MEDS: LORazepam 2 MG TABLET PO PRN ×2 (08:39→21:05)
[2020-11-07] MEDS: NICOTINE POLACRILEX 2 MG LOZENGE PO PRN (08:39)
[2020-11-07 16:20] VITALS: BP 113/76
[2020-11-08 05:49] VITALS: BP 106/68
[2020-11-08] MEDS: PETROLATUM,WHITE 28 GM JELLY TP PRN (06:12)
[2020-11-08] MEDS: LORazepam 2 MG TABLET PO PRN (08:28)
[2020-11-08] MEDS: DIVALPROEX SODIUM 500 MG ER TABLET PO SCH ×3 (08:28→20:32)
[2020-11-08] MEDS: ChlorproMAZINE HCL 100 MG TABLET PO SCH ×3 (08:29→20:32)
[2020-11-08] MEDS: RisperiDONE 2 MG TABLET PO SCH ×3 (08:29→20:33)
[2020-11-08] MEDS: THIAMINE 100 MG TABLET PO SCH (08:29)
[2020-11-08] MEDS: FOLIC ACID 1 MG TABLET PO SCH (08:29)
[2020-11-08] MEDS: PRAMOXINE HCL/CALAMINE 177 ML BOTTLE TP SCH (08:29)
[2020-11-08 08:34] VITALS: BP 127/74
[2020-11-08] MEDS: HALOPERIDOL 5 MG TABLET PO PRN (09:30)
[2020-11-08 16:12] VITALS: BP 103/69
[2020-11-09 00:38] VITALS: BP 109/66
[2020-11-09 07:40] LABS: COVID AG,FIA SOURCE NASOPHARYNGEAL
[2020-11-09] MEDS: FOLIC ACID 1 MG TABLET PO SCH (08:29)
[2020-11-09] MEDS: DIVALPROEX SODIUM 500 MG ER TABLET PO SCH ×3 (08:29→20:56)
[2020-11-09] MEDS: ChlorproMAZINE HCL 100 MG TABLET PO SCH ×3 (08:29→20:56)
[2020-11-09] MEDS: HALOPERIDOL 5 MG TABLET PO PRN ×2 (08:30→12:30)
[2020-11-09] MEDS: PRAMOXINE HCL/CALAMINE 177 ML BOTTLE TP SCH (08:30)
[2020-11-09] MEDS: LORazepam 2 MG TABLET PO PRN ×2 (08:30→12:30)
[2020-11-09] MEDS: THIAMINE 100 MG TABLET PO SCH (08:30)
[2020-11-09] MEDS: RisperiDONE 2 MG TABLET PO SCH ×3 (08:30→20:56)
[2020-11-09] MEDS: NICOTINE POLACRILEX 2 MG LOZENGE PO PRN (08:31)
[2020-11-09 08:53] VITALS: BP 116/67
[2020-11-09 16:06] VITALS: BP 107/71
[2020-11-09] MEDS: MAG HYDROX/AL HYDROX/SIMETH ES 30 ML SUSPENSION UDCUP PO PRN (22:06)
[2020-11-10 00:14] VITALS: BP 122/77
[2020-11-10 08:14] VITALS: BP 123/81
[2020-11-10] MEDS: HALOPERIDOL 5 MG TABLET PO PRN (08:42)
[2020-11-10] MEDS: THIAMINE 100 MG TABLET PO SCH (08:42)
[2020-11-10] MEDS: RisperiDONE 2 MG TABLET PO SCH ×3 (08:42→21:01)
[2020-11-10] MEDS: LORazepam 2 MG TABLET PO PRN (08:42)
[2020-11-10] MEDS: DIVALPROEX SODIUM 500 MG ER TABLET PO SCH ×3 (08:42→21:01)
[2020-11-10] MEDS: FOLIC ACID 1 MG TABLET PO SCH (08:42)
[2020-11-10] MEDS: ChlorproMAZINE HCL 100 MG TABLET PO SCH ×3 (08:42→21:01)
[2020-11-10] MEDS: PRAMOXINE HCL/CALAMINE 177 ML BOTTLE TP SCH (08:43)
[2020-11-10] MEDS: NICOTINE POLACRILEX 2 MG LOZENGE PO PRN (08:43)
[2020-11-10 16:08] VITALS: BP 110/75
[2020-11-11 00:21] VITALS: BP 125/79
[2020-11-11] MEDS: FOLIC ACID 1 MG TABLET PO SCH (08:03)
[2020-11-11] MEDS: HALOPERIDOL 5 MG TABLET PO PRN (08:03)
[2020-11-11] MEDS: DIVALPROEX SODIUM 500 MG ER TABLET PO SCH ×3 (08:03→21:12)
[2020-11-11] MEDS: RisperiDONE 2 MG TABLET PO SCH ×3 (08:03→21:11)
[2020-11-11] MEDS: LORazepam 2 MG TABLET PO PRN (08:03)
[2020-11-11] MEDS: THIAMINE 100 MG TABLET PO SCH (08:03)
[2020-11-11] MEDS: ChlorproMAZINE HCL 100 MG TABLET PO SCH ×3 (08:27→21:11)
[2020-11-11] MEDS: PRAMOXINE HCL/CALAMINE 177 ML BOTTLE TP SCH (08:28)
[2020-11-11 09:05] VITALS: BP 125/78
[2020-11-11] MEDS: NICOTINE POLACRILEX 2 MG LOZENGE PO PRN (10:50)
[2020-11-11 16:12] VITALS: BP 108/68
[2020-11-12 04:32] VITALS: BP 102/60
[2020-11-12 08:20] VITALS: BP 112/61
[2020-11-12] MEDS: DIVALPROEX SODIUM 500 MG ER TABLET PO SCH ×3 (08:33→20:28)
[2020-11-12] MEDS: RisperiDONE 2 MG TABLET PO SCH ×3 (08:33→20:28)
[2020-11-12] MEDS: LORazepam 2 MG TABLET PO PRN (08:33)
[2020-11-12] MEDS: ChlorproMAZINE HCL 100 MG TABLET PO SCH ×3 (08:33→20:28)
[2020-11-12] MEDS: FOLIC ACID 1 MG TABLET PO SCH (08:33)
[2020-11-12] MEDS: HALOPERIDOL 5 MG TABLET PO PRN (08:33)
[2020-11-12] MEDS: THIAMINE 100 MG TABLET PO SCH (08:33)
[2020-11-12] MEDS: NICOTINE POLACRILEX 2 MG LOZENGE PO PRN ×2 (08:50→14:10)
[2020-11-12] MEDS: PRAMOXINE HCL/CALAMINE 177 ML BOTTLE TP SCH (08:51)
[2020-11-12] MEDS: MAGNESIUM HYDROXIDE SUSPENSION 30 ML UDCUP PO PRN (14:51)
[2020-11-12 16:05] VITALS: BP 116/76
[2020-11-13 05:35] VITALS: BP 104/72
[2020-11-13 08:20] VITALS: BP 110/72
[2020-11-13] MEDS: FOLIC ACID 1 MG TABLET PO SCH (08:32)
[2020-11-13] MEDS: DIVALPROEX SODIUM 500 MG ER TABLET PO SCH ×3 (08:32→21:07)
[2020-11-13] MEDS: LORazepam 2 MG TABLET PO PRN (08:33)
[2020-11-13] MEDS: RisperiDONE 2 MG TABLET PO SCH ×3 (08:33→21:07)
[2020-11-13] MEDS: HALOPERIDOL 5 MG TABLET PO PRN (08:33)
[2020-11-13] MEDS: THIAMINE 100 MG TABLET PO SCH (08:33)
[2020-11-13] MEDS: ChlorproMAZINE HCL 100 MG TABLET PO SCH ×3 (08:58→21:07)
[2020-11-13] MEDS: NICOTINE POLACRILEX 2 MG LOZENGE PO PRN (09:07)
[2020-11-13] MEDS: PRAMOXINE HCL/CALAMINE 177 ML BOTTLE TP SCH (09:07)
[2020-11-13 16:16] VITALS: BP 116/74
[2020-11-14 00:24] VITALS: BP 101/62
[2020-11-14] MEDS: RisperiDONE 2 MG TABLET PO SCH ×3 (08:16→20:46)
[2020-11-14] MEDS: ChlorproMAZINE HCL 100 MG TABLET PO SCH ×3 (08:16→20:45)
[2020-11-14] MEDS: THIAMINE 100 MG TABLET PO SCH (08:16)
[2020-11-14] MEDS: DIVALPROEX SODIUM 500 MG ER TABLET PO SCH ×3 (08:16→20:45)
[2020-11-14 08:17] VITALS: BP 114/67
[2020-11-14] MEDS: FOLIC ACID 1 MG TABLET PO SCH (08:17)
[2020-11-14] MEDS: HALOPERIDOL 5 MG TABLET PO PRN (08:17)
[2020-11-14] MEDS: LORazepam 2 MG TABLET PO PRN (08:17)
[2020-11-14] MEDS: NICOTINE POLACRILEX 2 MG LOZENGE PO PRN (08:17)
[2020-11-14] MEDS: PRAMOXINE HCL/CALAMINE 177 ML BOTTLE TP SCH (08:18)
[2020-11-14 16:21] VITALS: BP 113/74
[2020-11-15 00:41] VITALS: BP 121/73
[2020-11-15] MEDS: PETROLATUM,WHITE 28 GM JELLY TP PRN (06:40)
[2020-11-15 08:18] VITALS: BP 111/72
[2020-11-15] MEDS: THIAMINE 100 MG TABLET PO SCH (08:19)
[2020-11-15] MEDS: FOLIC ACID 1 MG TABLET PO SCH (08:19)
[2020-11-15] MEDS: ChlorproMAZINE HCL 100 MG TABLET PO SCH ×3 (08:19→20:52)
[2020-11-15] MEDS: DIVALPROEX SODIUM 500 MG ER TABLET PO SCH ×3 (08:19→20:52)
[2020-11-15] MEDS: RisperiDONE 2 MG TABLET PO SCH ×3 (08:19→20:52)
[2020-11-15] MEDS: PRAMOXINE HCL/CALAMINE 177 ML BOTTLE TP SCH (08:20)
[2020-11-15] MEDS: NICOTINE POLACRILEX 2 MG LOZENGE PO PRN ×2 (09:04→16:28)
[2020-11-15 16:13] VITALS: BP 119/73
[2020-11-16 04:39] VITALS: BP 116/86
[2020-11-16] MEDS: HALOPERIDOL 5 MG TABLET PO PRN (08:08)
[2020-11-16] MEDS: RisperiDONE 2 MG TABLET PO SCH ×3 (08:09→20:00)
[2020-11-16] MEDS: FOLIC ACID 1 MG TABLET PO SCH (08:09)
[2020-11-16] MEDS: LORazepam 2 MG TABLET PO PRN (08:09)
[2020-11-16] MEDS: PRAMOXINE HCL/CALAMINE 177 ML BOTTLE TP SCH (08:09)
[2020-11-16] MEDS: ChlorproMAZINE HCL 100 MG TABLET PO SCH ×3 (08:09→19:59)
[2020-11-16] MEDS: DIVALPROEX SODIUM 500 MG ER TABLET PO SCH ×3 (08:09→20:00)
[2020-11-16] MEDS: THIAMINE 100 MG TABLET PO SCH (08:09)
[2020-11-16 08:11] VITALS: BP 111/74
[2020-11-16 10:43] LABS: COVID AG,FIA SOURCE NASOPHARYNGEAL
[2020-11-16 16:16] VITALS: BP 113/78
[2020-11-16] MEDS: NICOTINE POLACRILEX 2 MG LOZENGE PO PRN (16:16)
[2020-11-17 06:23] VITALS: BP 98/61
[2020-11-17 08:06] VITALS: BP 103/63
[2020-11-17] MEDS: THIAMINE 100 MG TABLET PO SCH (08:10)
[2020-11-17] MEDS: HALOPERIDOL 5 MG TABLET PO PRN ×2 (08:10→20:06)
[2020-11-17] MEDS: RisperiDONE 2 MG TABLET PO SCH ×3 (08:10→20:06)
[2020-11-17] MEDS: LORazepam 2 MG TABLET PO PRN ×2 (08:10→16:00)
[2020-11-17] MEDS: FOLIC ACID 1 MG TABLET PO SCH (08:10)
[2020-11-17] MEDS: ChlorproMAZINE HCL 100 MG TABLET PO SCH ×3 (08:10→20:06)
[2020-11-17] MEDS: DIVALPROEX SODIUM 500 MG ER TABLET PO SCH ×3 (08:10→20:06)
[2020-11-17] MEDS: PRAMOXINE HCL/CALAMINE 177 ML BOTTLE TP SCH (08:11)
[2020-11-17] MEDS: MAG HYDROX/AL HYDROX/SIMETH ES 30 ML SUSPENSION UDCUP PO PRN ×2 (09:10→20:41)
[2020-11-17] MEDS: NICOTINE POLACRILEX 2 MG LOZENGE PO PRN (10:29)
[2020-11-17 16:14] VITALS: BP 112/75
[2020-11-18 05:26] VITALS: BP 111/75
[2020-11-18 08:09] VITALS: BP 105/65
[2020-11-18] MEDS: FOLIC ACID 1 MG TABLET PO SCH (09:12)
[2020-11-18] MEDS: PRAMOXINE HCL/CALAMINE 177 ML BOTTLE TP SCH (09:12)
[2020-11-18] MEDS: ChlorproMAZINE HCL 100 MG TABLET PO SCH ×3 (09:12→21:14)
[2020-11-18] MEDS: DIVALPROEX SODIUM 500 MG ER TABLET PO SCH ×3 (09:12→21:15)
[2020-11-18] MEDS: THIAMINE 100 MG TABLET PO SCH (09:12)
[2020-11-18] MEDS: RisperiDONE 2 MG TABLET PO SCH ×3 (09:12→21:15)
[2020-11-18] MEDS: LORazepam 2 MG TABLET PO PRN (14:48)
[2020-11-18] MEDS: HALOPERIDOL 5 MG TABLET PO PRN (14:48)
[2020-11-18 16:07] VITALS: BP 117/73
[2020-11-18] MEDS: NICOTINE POLACRILEX 2 MG LOZENGE PO PRN (16:08)
[2020-11-19 00:39] VITALS: BP 115/75
[2020-11-19] MEDS: PRAMOXINE HCL/CALAMINE 177 ML BOTTLE TP SCH (08:23)
[2020-11-19] MEDS: DIVALPROEX SODIUM 500 MG ER TABLET PO SCH ×3 (08:23→20:02)
[2020-11-19] MEDS: THIAMINE 100 MG TABLET PO SCH (08:23)
[2020-11-19] MEDS: ChlorproMAZINE HCL 100 MG TABLET PO SCH ×3 (08:23→20:02)
[2020-11-19] MEDS: FOLIC ACID 1 MG TABLET PO SCH (08:23)
[2020-11-19] MEDS: RisperiDONE 2 MG TABLET PO SCH ×3 (08:23→20:02)
[2020-11-19 08:37] VITALS: BP 106/66
[2020-11-19] MEDS: HALOPERIDOL 5 MG TABLET PO PRN (08:46)
[2020-11-19] MEDS: LORazepam 2 MG TABLET PO PRN (08:46)
[2020-11-19] MEDS: MAGNESIUM HYDROXIDE SUSPENSION 30 ML UDCUP PO PRN (14:23)
[2020-11-19] MEDS: NICOTINE POLACRILEX 2 MG LOZENGE PO PRN (15:43)
[2020-11-19 16:11] VITALS: BP 120/81
[2020-11-20 00:50] VITALS: BP 115/73
[2020-11-20] MEDS: HALOPERIDOL 5 MG TABLET PO PRN (08:15)
[2020-11-20] MEDS: LORazepam 2 MG TABLET PO PRN ×2 (08:15→15:37)
[2020-11-20 08:46] VITALS: BP 109/71
[2020-11-20] MEDS: DIVALPROEX SODIUM 500 MG ER TABLET PO SCH ×3 (09:35→20:33)
[2020-11-20] MEDS: ChlorproMAZINE HCL 100 MG TABLET PO SCH ×3 (09:35→20:33)
[2020-11-20] MEDS: PRAMOXINE HCL/CALAMINE 177 ML BOTTLE TP SCH (09:35)
[2020-11-20] MEDS: RisperiDONE 2 MG TABLET PO SCH ×3 (09:35→20:33)
[2020-11-20] MEDS: FOLIC ACID 1 MG TABLET PO SCH (09:35)
[2020-11-20] MEDS: THIAMINE 100 MG TABLET PO SCH (09:35)
[2020-11-20 16:33] VITALS: BP 119/67
[2020-11-21 00:18] VITALS: BP 121/76
[2020-11-21] MEDS: DIVALPROEX SODIUM 500 MG ER TABLET PO SCH ×3 (08:09→21:02)
[2020-11-21] MEDS: LORazepam 2 MG TABLET PO PRN ×2 (08:09→16:54)
[2020-11-21] MEDS: RisperiDONE 2 MG TABLET PO SCH ×3 (08:09→21:02)
[2020-11-21] MEDS: ChlorproMAZINE HCL 100 MG TABLET PO SCH ×3 (08:09→21:02)
[2020-11-21] MEDS: FOLIC ACID 1 MG TABLET PO SCH (08:09)
[2020-11-21] MEDS: THIAMINE 100 MG TABLET PO SCH (08:09)
[2020-11-21] MEDS: PRAMOXINE HCL/CALAMINE 177 ML BOTTLE TP SCH (08:10)
[2020-11-21 08:29] VITALS: BP 114/69
[2020-11-21] MEDS: HALOPERIDOL 5 MG TABLET PO PRN ×2 (09:23→16:54)
[2020-11-21] MEDS: NICOTINE POLACRILEX 2 MG LOZENGE PO PRN (12:56)
[2020-11-21 16:16] VITALS: BP 122/78
[2020-11-22 00:15] VITALS: BP 124/75
[2020-11-22 08:06] VITALS: BP 116/76
[2020-11-22] MEDS: ChlorproMAZINE HCL 100 MG TABLET PO SCH ×3 (08:53→20:30)
[2020-11-22] MEDS: RisperiDONE 2 MG TABLET PO SCH ×3 (08:54→20:30)
[2020-11-22] MEDS: HALOPERIDOL 5 MG TABLET PO PRN (08:54)
[2020-11-22] MEDS: FOLIC ACID 1 MG TABLET PO SCH (08:54)
[2020-11-22] MEDS: THIAMINE 100 MG TABLET PO SCH (08:54)
[2020-11-22] MEDS: DIVALPROEX SODIUM 500 MG ER TABLET PO SCH ×3 (08:54→20:30)
[2020-11-22] MEDS: LORazepam 2 MG TABLET PO PRN ×2 (08:54→21:37)
[2020-11-22] MEDS: PRAMOXINE HCL/CALAMINE 177 ML BOTTLE TP SCH (09:00)
[2020-11-22] MEDS: NICOTINE POLACRILEX 2 MG LOZENGE PO PRN (12:20)
[2020-11-22 16:08] VITALS: BP 113/75
[2020-11-23 05:13] VITALS: BP 102/66
[2020-11-23] MEDS: FOLIC ACID 1 MG TABLET PO SCH (08:18)
[2020-11-23] MEDS: DIVALPROEX SODIUM 500 MG ER TABLET PO SCH ×3 (08:18→20:28)
[2020-11-23] MEDS: THIAMINE 100 MG TABLET PO SCH (08:18)
[2020-11-23] MEDS: HALOPERIDOL 5 MG TABLET PO PRN ×2 (08:19→12:15)
[2020-11-23] MEDS: LORazepam 2 MG TABLET PO PRN ×2 (08:19→12:15)
[2020-11-23] MEDS: RisperiDONE 2 MG TABLET PO SCH ×3 (08:19→20:28)
[2020-11-23] MEDS: PRAMOXINE HCL/CALAMINE 177 ML BOTTLE TP SCH (08:20)
[2020-11-23 08:36] VITALS: BP 107/65
[2020-11-23] MEDS: ChlorproMAZINE HCL 100 MG TABLET PO SCH ×3 (08:39→20:28)
[2020-11-23] MEDS: NICOTINE POLACRILEX 2 MG LOZENGE PO PRN ×2 (08:41→14:55)
[2020-11-23 09:47] LABS: COVID AG,FIA SOURCE NASOPHARYNGEAL
[2020-11-23 16:21] VITALS: BP 107/72
[2020-11-24 00:25] VITALS: BP 122/60
[2020-11-24] MEDS: DIVALPROEX SODIUM 500 MG ER TABLET PO SCH ×3 (08:10→20:04)
[2020-11-24] MEDS: THIAMINE 100 MG TABLET PO SCH (08:10)
[2020-11-24] MEDS: PRAMOXINE HCL/CALAMINE 177 ML BOTTLE TP SCH (08:10)
[2020-11-24] MEDS: ChlorproMAZINE HCL 100 MG TABLET PO SCH ×3 (08:10→20:04)
[2020-11-24] MEDS: RisperiDONE 2 MG TABLET PO SCH ×3 (08:10→20:04)
[2020-11-24] MEDS: FOLIC ACID 1 MG TABLET PO SCH (08:10)
[2020-11-24] MEDS: HALOPERIDOL 5 MG TABLET PO PRN ×2 (08:11→16:09)
[2020-11-24] MEDS: LORazepam 2 MG TABLET PO PRN (08:11)
[2020-11-24 08:22] VITALS: BP 107/64
[2020-11-24] MEDS: NICOTINE POLACRILEX 2 MG LOZENGE PO PRN (15:59)
[2020-11-24 16:23] VITALS: BP 117/75
[2020-11-25 00:16] VITALS: BP 120/66
[2020-11-25] MEDS: LORazepam 2 MG TABLET PO PRN (06:55)
[2020-11-25 08:12] VITALS: BP 115/69
[2020-11-25] MEDS: DIVALPROEX SODIUM 500 MG ER TABLET PO SCH ×3 (08:27→20:40)
[2020-11-25] MEDS: THIAMINE 100 MG TABLET PO SCH (08:27)
[2020-11-25] MEDS: RisperiDONE 2 MG TABLET PO SCH (08:27)
[2020-11-25] MEDS: ChlorproMAZINE HCL 100 MG TABLET PO SCH ×3 (08:27→20:40)
[2020-11-25] MEDS: FOLIC ACID 1 MG TABLET PO SCH (08:27)
[2020-11-25] MEDS: NICOTINE POLACRILEX 2 MG LOZENGE PO PRN ×2 (09:21→15:56)
[2020-11-25] MEDS: PRAMOXINE HCL/CALAMINE 177 ML BOTTLE TP SCH (09:21)
[2020-11-25 16:17] VITALS: BP 107/70
[2020-11-25] MEDS: RisperiDONE 3 MG TABLET PO SCH ×2 (16:56→20:40)
[2020-11-26 00:56] VITALS: BP 110/74
[2020-11-26 07:51] LABS: BASOPHILS % (AUTO) 0.4 % (0.0-2.0); EOSINOPHILS % (AUTO) 0.1 % (1.0-6.0); HEMATOCRIT 42.6 % (41-53); HEMOGLOBIN 14.4 g/dL (13.5-17.5); LYMPHOCYTES # (AUTO) 1.9 K/uL (1.0-4.8); LYMPHOCYTES % (AUTO) 35.6 % (22.0-44.0); MEAN CORPUSCULAR HEMOGLOBIN 30.6 pg (26.0-34.0); MEAN CORPUSCULAR HGB CONC 33.9 G/dL (31.0-37.0); MEAN CORPUSCULAR VOLUME 90 fL (80-100); MONOCYTES # (AUTO) 0.9 K/uL (0.1-1.0); MONOCYTES % (AUTO) 16.8 % (2.0-9.0); NEUTROPHILS # (AUTO) 2.6 K/uL (1.8-7.7); NEUTROPHILS % (AUTO) 47.1 % (40.0-70.0); PLATELET COUNT (AUTO) 172 K/uL (150-450); RED BLOOD CELL COUNT(AUTO) 4.71 MIL/uL (4.50-5.90); RED CELL DISTRIBUTION WIDTH 12.5 % (11.5-14.5)
[2020-11-26 08:03] LABS: ANION GAP 7 mmol/L (8-16); CALCIUM, TOTAL 8.8 mg/dL (8.8-10.5); CARBON DIOXIDE 28 mmol/L (22-29); CHLORIDE 103 mmol/L (98-107); GLOMERULAR FILTR. RATE CALC > 60 mL/min (>60); GLUCOSE,RANDOM 82 mg/dL (70-110); POTASSIUM 4.4 mmol/L (3.5-5.1); SODIUM SERUM 138 mmol/L (136-145); UREA NITROGEN, BLOOD 17 mg/dL (7-18)
[2020-11-26 08:24] VITALS: BP 110/70
[2020-11-26] MEDS: THIAMINE 100 MG TABLET PO SCH (09:17)
[2020-11-26] MEDS: FOLIC ACID 1 MG TABLET PO SCH (09:17)
[2020-11-26] MEDS: RisperiDONE 3 MG TABLET PO SCH ×3 (09:17→21:27)
[2020-11-26] MEDS: DIVALPROEX SODIUM 500 MG ER TABLET PO SCH ×3 (09:17→21:27)
[2020-11-26] MEDS: NICOTINE POLACRILEX 2 MG LOZENGE PO PRN ×2 (09:19→14:31)
[2020-11-26] MEDS: PRAMOXINE HCL/CALAMINE 177 ML BOTTLE TP SCH (10:08)
[2020-11-26] MEDS: ChlorproMAZINE HCL 100 MG TABLET PO SCH ×3 (10:08→21:27)
[2020-11-26] MEDS: HALOPERIDOL 5 MG TABLET PO PRN (15:47)
[2020-11-26] MEDS: LORazepam 2 MG TABLET PO PRN (15:47)
[2020-11-26 16:13] VITALS: BP 112/71
[2020-11-27 00:40] VITALS: BP 105/64
[2020-11-27] MEDS: LORazepam 2 MG TABLET PO PRN ×2 (06:21→19:59)
[2020-11-27] MEDS: HALOPERIDOL 5 MG TABLET PO PRN (06:21)
[2020-11-27] MEDS: DIVALPROEX SODIUM 500 MG ER TABLET PO SCH ×3 (08:07→20:38)
[2020-11-27] MEDS: ChlorproMAZINE HCL 100 MG TABLET PO SCH ×3 (08:07→20:38)
[2020-11-27] MEDS: RisperiDONE 3 MG TABLET PO SCH ×3 (08:07→20:38)
[2020-11-27] MEDS: FOLIC ACID 1 MG TABLET PO SCH (08:07)
[2020-11-27] MEDS: THIAMINE 100 MG TABLET PO SCH (08:08)
[2020-11-27] MEDS: PRAMOXINE HCL/CALAMINE 177 ML BOTTLE TP SCH (08:12)
[2020-11-27 08:18] VITALS: BP 109/64
[2020-11-27] MEDS: NICOTINE POLACRILEX 2 MG LOZENGE PO PRN ×2 (10:01→14:07)
[2020-11-27] MEDS ORDERED: BENZOCAINE 10% 7 GM GEL TP PRN (11:00)
[2020-11-27 16:23] VITALS: BP 116/75
[2020-11-28] MEDS: HALOPERIDOL 5 MG TABLET PO PRN ×2 (06:26→21:39)
[2020-11-28] MEDS: LORazepam 2 MG TABLET PO PRN (06:26)
[2020-11-28 08:12] VITALS: BP 121/67
[2020-11-28] MEDS: THIAMINE 100 MG TABLET PO SCH (09:15)
[2020-11-28] MEDS: RisperiDONE 3 MG TABLET PO SCH ×3 (09:15→21:38)
[2020-11-28] MEDS: ChlorproMAZINE HCL 100 MG TABLET PO SCH ×3 (09:15→21:39)
[2020-11-28] MEDS: FOLIC ACID 1 MG TABLET PO SCH (09:16)
[2020-11-28] MEDS: DIVALPROEX SODIUM 500 MG ER TABLET PO SCH ×3 (09:16→21:38)
[2020-11-28] MEDS: PRAMOXINE HCL/CALAMINE 177 ML BOTTLE TP SCH (09:16)
[2020-11-28] MEDS: NICOTINE POLACRILEX 2 MG LOZENGE PO PRN ×2 (09:51→14:40)
[2020-11-28 16:27] VITALS: BP 115/77
[2020-11-29 04:55] VITALS: BP 112/68
[2020-11-29 08:14] VITALS: BP 117/69
[2020-11-29] MEDS: RisperiDONE 3 MG TABLET PO SCH ×3 (08:14→21:36)
[2020-11-29] MEDS: DIVALPROEX SODIUM 500 MG ER TABLET PO SCH ×3 (08:14→21:36)
[2020-11-29] MEDS: FOLIC ACID 1 MG TABLET PO SCH (08:14)
[2020-11-29] MEDS: ChlorproMAZINE HCL 100 MG TABLET PO SCH ×3 (08:14→21:36)
[2020-11-29] MEDS: THIAMINE 100 MG TABLET PO SCH (08:14)
[2020-11-29] MEDS: LORazepam 2 MG TABLET PO PRN (08:15)
[2020-11-29] MEDS: PRAMOXINE HCL/CALAMINE 177 ML BOTTLE TP SCH (09:30)
[2020-11-29] MEDS: NICOTINE POLACRILEX 2 MG LOZENGE PO PRN ×2 (10:16→17:31)
[2020-11-29 16:23] VITALS: BP 123/79
[2020-11-30 06:21] VITALS: BP 126/84
[2020-11-30 07:19] LABS: COVID AG,FIA SOURCE NASOPHARYNGEAL
[2020-11-30 08:30] VITALS: BP 110/71
[2020-11-30] MEDS: LORazepam 2 MG TABLET PO PRN (08:35)
[2020-11-30] MEDS: DIVALPROEX SODIUM 500 MG ER TABLET PO SCH ×3 (08:36→20:51)
[2020-11-30] MEDS: RisperiDONE 3 MG TABLET PO SCH ×3 (08:36→20:50)
[2020-11-30] MEDS: ChlorproMAZINE HCL 100 MG TABLET PO SCH ×3 (08:36→20:51)
[2020-11-30] MEDS: FOLIC ACID 1 MG TABLET PO SCH (08:36)
[2020-11-30] MEDS: THIAMINE 100 MG TABLET PO SCH (08:36)
[2020-11-30] MEDS: NICOTINE POLACRILEX 2 MG LOZENGE PO PRN ×2 (08:39→14:40)
[2020-11-30] MEDS: PRAMOXINE HCL/CALAMINE 177 ML BOTTLE TP SCH (08:41)
[2020-11-30] MEDS: MAG HYDROX/AL HYDROX/SIMETH ES 30 ML SUSPENSION UDCUP PO PRN (16:21)
[2020-11-30 16:31] VITALS: BP 107/74
[2020-12-01 00:45] VITALS: BP 125/77
[2020-12-01] MEDS: RisperiDONE 3 MG TABLET PO SCH ×3 (08:19→20:35)
[2020-12-01] MEDS: NICOTINE POLACRILEX 2 MG LOZENGE PO PRN ×2 (08:20→15:15)
[2020-12-01] MEDS: ChlorproMAZINE HCL 100 MG TABLET PO SCH ×3 (08:20→20:35)
[2020-12-01] MEDS: FOLIC ACID 1 MG TABLET PO SCH (08:20)
[2020-12-01] MEDS: DIVALPROEX SODIUM 500 MG ER TABLET PO SCH ×3 (08:20→20:35)
[2020-12-01] MEDS: THIAMINE 100 MG TABLET PO SCH (08:20)
[2020-12-01] MEDS: PRAMOXINE HCL/CALAMINE 177 ML BOTTLE TP SCH (08:21)
[2020-12-01 08:28] VITALS: BP 105/69
[2020-12-01] MEDS: HALOPERIDOL 5 MG TABLET PO PRN (15:15)
[2020-12-01] MEDS: LORazepam 2 MG TABLET PO PRN (15:15)
[2020-12-01 16:14] VITALS: BP 126/82
[2020-12-02 06:20] VITALS: BP 101/61
[2020-12-02] MEDS: ChlorproMAZINE HCL 100 MG TABLET PO SCH ×3 (08:25→20:43)
[2020-12-02] MEDS: DIVALPROEX SODIUM 500 MG ER TABLET PO SCH ×3 (08:25→20:43)
[2020-12-02] MEDS: LORazepam 2 MG TABLET PO PRN ×2 (08:25→12:35)
[2020-12-02] MEDS: THIAMINE 100 MG TABLET PO SCH (08:25)
[2020-12-02] MEDS: RisperiDONE 3 MG TABLET PO SCH ×3 (08:25→20:43)
[2020-12-02] MEDS: HALOPERIDOL 5 MG TABLET PO PRN ×2 (08:25→12:35)
[2020-12-02] MEDS: FOLIC ACID 1 MG TABLET PO SCH (08:26)
[2020-12-02 08:48] VITALS: BP 121/69
[2020-12-02] MEDS: NICOTINE POLACRILEX 2 MG LOZENGE PO PRN ×2 (09:04→16:37)
[2020-12-02] MEDS: PRAMOXINE HCL/CALAMINE 177 ML BOTTLE TP SCH (09:05)
[2020-12-02 16:21] VITALS: BP 110/70
[2020-12-02] MEDS: IBUPROFEN 400 MG TABLET PO PRN (16:37)
[2020-12-03 03:55] VITALS: BP 118/68
[2020-12-03 08:33] VITALS: BP 112/66
[2020-12-03] MEDS: PRAMOXINE HCL/CALAMINE 177 ML BOTTLE TP SCH (09:00)
[2020-12-03] MEDS: RisperiDONE 3 MG TABLET PO SCH ×3 (09:13→20:31)
[2020-12-03] MEDS: THIAMINE 100 MG TABLET PO SCH (09:14)
[2020-12-03] MEDS: FOLIC ACID 1 MG TABLET PO SCH (09:14)
[2020-12-03] MEDS: HALOPERIDOL 5 MG TABLET PO PRN (09:14)
[2020-12-03] MEDS: LORazepam 2 MG TABLET PO PRN (09:14)
[2020-12-03] MEDS: DIVALPROEX SODIUM 500 MG ER TABLET PO SCH ×3 (09:14→20:31)
[2020-12-03] MEDS: ChlorproMAZINE HCL 100 MG TABLET PO SCH ×3 (09:14→20:32)
[2020-12-03] MEDS: NICOTINE POLACRILEX 2 MG LOZENGE PO PRN ×2 (13:32→20:40)
[2020-12-03 16:22] VITALS: BP 108/74
[2020-12-04 07:11] VITALS: BP 108/65
[2020-12-04] MEDS: FOLIC ACID 1 MG TABLET PO SCH (08:04)
[2020-12-04] MEDS: DIVALPROEX SODIUM 500 MG ER TABLET PO SCH ×3 (08:04→20:35)
[2020-12-04] MEDS: ChlorproMAZINE HCL 100 MG TABLET PO SCH ×3 (08:04→20:35)
[2020-12-04] MEDS: THIAMINE 100 MG TABLET PO SCH (08:05)
[2020-12-04] MEDS: RisperiDONE 3 MG TABLET PO SCH ×3 (08:05→20:34)
[2020-12-04] MEDS: NICOTINE POLACRILEX 2 MG LOZENGE PO PRN ×2 (08:08→15:43)
[2020-12-04] MEDS: PRAMOXINE HCL/CALAMINE 177 ML BOTTLE TP SCH (08:23)
[2020-12-04 08:45] VITALS: BP 118/69
[2020-12-04] MEDS: LORazepam 2 MG TABLET PO PRN (15:43)
[2020-12-04 16:19] VITALS: BP 136/87
[2020-12-04] MEDS: MAG HYDROX/AL HYDROX/SIMETH ES 30 ML SUSPENSION UDCUP PO PRN (20:35)
[2020-12-05 04:55] VITALS: BP 132/89
[2020-12-05 06:17] VITALS: BP 130/91
[2020-12-05] MEDS: LORazepam 2 MG TABLET PO PRN (06:30)
[2020-12-05] MEDS: HALOPERIDOL 5 MG TABLET PO PRN (06:30)
[2020-12-05] MEDS: ChlorproMAZINE HCL 100 MG TABLET PO SCH ×3 (08:07→20:45)
[2020-12-05] MEDS: FOLIC ACID 1 MG TABLET PO SCH (08:07)
[2020-12-05] MEDS: RisperiDONE 3 MG TABLET PO SCH (08:07)
[2020-12-05] MEDS: THIAMINE 100 MG TABLET PO SCH (08:07)
[2020-12-05] MEDS: DIVALPROEX SODIUM 500 MG ER TABLET PO SCH ×3 (08:07→20:45)
[2020-12-05] MEDS: NICOTINE POLACRILEX 2 MG LOZENGE PO PRN ×2 (08:07→14:48)
[2020-12-05] MEDS: PRAMOXINE HCL/CALAMINE 177 ML BOTTLE TP SCH (08:08)
[2020-12-05 08:51] VITALS: BP 108/70
[2020-12-05] MEDS: AMOXICILLIN TRIHYDRATE 500 MG CAPSULE PO SCH ×3 (13:32→20:45)
[2020-12-05 16:24] VITALS: BP 122/75
[2020-12-05] MEDS: RisperiDONE 4 MG TABLET PO SCH (20:45)
[2020-12-05] MEDS: MAG HYDROX/AL HYDROX/SIMETH ES 30 ML SUSPENSION UDCUP PO PRN (21:16)
[2020-12-06 05:51] VITALS: BP 104/66
[2020-12-06] MEDS: THIAMINE 100 MG TABLET PO SCH (08:02)
[2020-12-06] MEDS: NICOTINE POLACRILEX 2 MG LOZENGE PO PRN ×2 (08:02→14:54)
[2020-12-06] MEDS: AMOXICILLIN TRIHYDRATE 500 MG CAPSULE PO SCH ×4 (08:02→20:30)
[2020-12-06] MEDS: DIVALPROEX SODIUM 500 MG ER TABLET PO SCH ×3 (08:02→20:30)
[2020-12-06] MEDS: RisperiDONE 4 MG TABLET PO SCH ×2 (08:03→20:30)
[2020-12-06] MEDS: FOLIC ACID 1 MG TABLET PO SCH (08:03)
[2020-12-06] MEDS: LORazepam 2 MG TABLET PO PRN (08:03)
[2020-12-06] MEDS: ChlorproMAZINE HCL 100 MG TABLET PO SCH ×3 (08:03→20:30)
[2020-12-06] MEDS: HALOPERIDOL 5 MG TABLET PO PRN (08:03)
[2020-12-06 08:23] VITALS: BP 113/65
[2020-12-06] MEDS: PRAMOXINE HCL/CALAMINE 177 ML BOTTLE TP SCH (09:00)
[2020-12-06 16:13] VITALS: BP 129/83
[2020-12-07 02:00] VITALS: BP 100/59
[2020-12-07 07:31] LABS: COVID AG,FIA SOURCE NASOPHARYNGEAL
[2020-12-07 08:09] VITALS: BP 126/74
[2020-12-07] MEDS: LORazepam 2 MG TABLET PO PRN ×2 (09:10→16:01)
[2020-12-07] MEDS: ChlorproMAZINE HCL 100 MG TABLET PO SCH ×3 (09:10→20:19)
[2020-12-07] MEDS: THIAMINE 100 MG TABLET PO SCH (09:10)
[2020-12-07] MEDS: PRAMOXINE HCL/CALAMINE 177 ML BOTTLE TP SCH (09:10)
[2020-12-07] MEDS: RisperiDONE 4 MG TABLET PO SCH ×2 (09:10→20:19)
[2020-12-07] MEDS: AMOXICILLIN TRIHYDRATE 500 MG CAPSULE PO SCH ×4 (09:10→20:20)
[2020-12-07] MEDS: FOLIC ACID 1 MG TABLET PO SCH (09:10)
[2020-12-07] MEDS: DIVALPROEX SODIUM 500 MG ER TABLET PO SCH ×3 (09:10→20:19)
[2020-12-07] MEDS: HALOPERIDOL 5 MG TABLET PO PRN (09:10)
[2020-12-07] MEDS: NICOTINE POLACRILEX 2 MG LOZENGE PO PRN ×2 (09:19→16:05)
[2020-12-07 16:21] VITALS: BP 129/79
[2020-12-08 00:26] VITALS: BP 108/68
[2020-12-08] MEDS: NICOTINE POLACRILEX 2 MG LOZENGE PO PRN (08:02)
[2020-12-08 08:06] VITALS: BP_SYST 104; BP_SYST 113; BP_DIAS 62; BP_DIAS 66
[2020-12-08] MEDS: FOLIC ACID 1 MG TABLET PO SCH (08:40)
[2020-12-08] MEDS: ChlorproMAZINE HCL 100 MG TABLET PO SCH ×3 (08:40→21:13)
[2020-12-08] MEDS: AMOXICILLIN TRIHYDRATE 500 MG CAPSULE PO SCH ×4 (08:40→21:13)
[2020-12-08] MEDS: RisperiDONE 4 MG TABLET PO SCH ×2 (08:40→21:13)
[2020-12-08] MEDS: THIAMINE 100 MG TABLET PO SCH (08:40)
[2020-12-08] MEDS: DIVALPROEX SODIUM 500 MG ER TABLET PO SCH ×3 (08:40→21:13)
[2020-12-08] MEDS: PRAMOXINE HCL/CALAMINE 177 ML BOTTLE TP SCH (08:41)
[2020-12-08 16:15] VITALS: BP 117/76
[2020-12-09 00:23] VITALS: BP 135/84
[2020-12-09] MEDS: HALOPERIDOL 5 MG TABLET PO PRN (05:34)
[2020-12-09] MEDS: LORazepam 2 MG TABLET PO PRN (05:34)
[2020-12-09 08:19] VITALS: BP 110/75
[2020-12-09] MEDS: FOLIC ACID 1 MG TABLET PO SCH (09:08)
[2020-12-09] MEDS: THIAMINE 100 MG TABLET PO SCH (09:08)
[2020-12-09] MEDS: AMOXICILLIN TRIHYDRATE 500 MG CAPSULE PO SCH ×4 (09:08→21:21)
[2020-12-09] MEDS: DIVALPROEX SODIUM 500 MG ER TABLET PO SCH ×3 (09:08→21:21)
[2020-12-09] MEDS: PRAMOXINE HCL/CALAMINE 177 ML BOTTLE TP SCH (09:09)
[2020-12-09] MEDS: ChlorproMAZINE HCL 100 MG TABLET PO SCH ×3 (09:09→21:21)
[2020-12-09] MEDS: RisperiDONE 4 MG TABLET PO SCH ×2 (09:09→21:21)
[2020-12-09 16:15] VITALS: BP 122/84
[2020-12-09] MEDS: NICOTINE POLACRILEX 2 MG LOZENGE PO PRN (19:05)
[2020-12-10 00:23] VITALS: BP 112/67
[2020-12-10 08:38] VITALS: BP 118/77
[2020-12-10] MEDS: FOLIC ACID 1 MG TABLET PO SCH (09:40)
[2020-12-10] MEDS: DIVALPROEX SODIUM 500 MG ER TABLET PO SCH ×3 (09:40→20:30)
[2020-12-10] MEDS: THIAMINE 100 MG TABLET PO SCH (09:40)
[2020-12-10] MEDS: AMOXICILLIN TRIHYDRATE 500 MG CAPSULE PO SCH ×4 (09:40→20:30)
[2020-12-10] MEDS: ChlorproMAZINE HCL 100 MG TABLET PO SCH ×3 (09:40→20:30)
[2020-12-10] MEDS: RisperiDONE 4 MG TABLET PO SCH ×2 (09:40→20:30)
[2020-12-10] MEDS: PRAMOXINE HCL/CALAMINE 177 ML BOTTLE TP SCH (09:41)
[2020-12-10] MEDS: NICOTINE POLACRILEX 2 MG LOZENGE PO PRN (10:06)
[2020-12-10 16:09] VITALS: BP 132/86
[2020-12-11 05:39] VITALS: BP 103/66
[2020-12-11 08:11] VITALS: BP 128/66
[2020-12-11] MEDS: PRAMOXINE HCL/CALAMINE 177 ML BOTTLE TP SCH (09:10)
[2020-12-11] MEDS: DIVALPROEX SODIUM 500 MG ER TABLET PO SCH ×3 (09:10→20:31)
[2020-12-11] MEDS: AMOXICILLIN TRIHYDRATE 500 MG CAPSULE PO SCH ×4 (09:10→20:31)
[2020-12-11] MEDS: FOLIC ACID 1 MG TABLET PO SCH (09:10)
[2020-12-11] MEDS: RisperiDONE 4 MG TABLET PO SCH ×2 (09:10→20:32)
[2020-12-11] MEDS: THIAMINE 100 MG TABLET PO SCH (09:10)
[2020-12-11] MEDS: ChlorproMAZINE HCL 100 MG TABLET PO SCH ×3 (09:10→20:31)
[2020-12-11] MEDS: NICOTINE POLACRILEX 2 MG LOZENGE PO PRN ×2 (09:57→15:39)
[2020-12-11 16:18] VITALS: BP 111/75
[2020-12-11] MEDS: LORazepam 2 MG TABLET PO PRN (17:11)
[2020-12-11] MEDS: HALOPERIDOL 5 MG TABLET PO PRN (17:12)
[2020-12-12 00:14] VITALS: BP 115/78
[2020-12-12 08:14] VITALS: BP 118/70
[2020-12-12] MEDS: DIVALPROEX SODIUM 500 MG ER TABLET PO SCH ×3 (08:15→20:27)
[2020-12-12] MEDS: HALOPERIDOL 5 MG TABLET PO PRN ×2 (08:15→16:11)
[2020-12-12] MEDS: RisperiDONE 4 MG TABLET PO SCH ×2 (08:16→20:06)
[2020-12-12] MEDS: THIAMINE 100 MG TABLET PO SCH (08:16)
[2020-12-12] MEDS: LORazepam 2 MG TABLET PO PRN (08:16)
[2020-12-12] MEDS: FOLIC ACID 1 MG TABLET PO SCH (08:16)
[2020-12-12] MEDS: AMOXICILLIN TRIHYDRATE 500 MG CAPSULE PO SCH (08:16)
[2020-12-12] MEDS: ChlorproMAZINE HCL 100 MG TABLET PO SCH ×3 (08:16→20:06)
[2020-12-12] MEDS: PRAMOXINE HCL/CALAMINE 177 ML BOTTLE TP SCH (08:17)
[2020-12-12] MEDS: NICOTINE POLACRILEX 2 MG LOZENGE PO PRN ×2 (09:15→13:31)
[2020-12-12] MEDS ORDERED: BENZOCAINE 20% 7 GM GEL TP PRN (16:00)
[2020-12-12 16:09] VITALS: BP 116/77
[2020-12-13 01:28] VITALS: BP 121/73
[2020-12-13 08:22] VITALS: BP 117/75
[2020-12-13] MEDS: ChlorproMAZINE HCL 100 MG TABLET PO SCH ×3 (08:54→20:59)
[2020-12-13] MEDS: FOLIC ACID 1 MG TABLET PO SCH (08:54)
[2020-12-13] MEDS: DIVALPROEX SODIUM 500 MG ER TABLET PO SCH ×3 (08:54→20:59)
[2020-12-13] MEDS: THIAMINE 100 MG TABLET PO SCH (08:54)
[2020-12-13] MEDS: RisperiDONE 4 MG TABLET PO SCH ×2 (08:54→20:59)
[2020-12-13] MEDS: PRAMOXINE HCL/CALAMINE 177 ML BOTTLE TP SCH (09:00)
[2020-12-13] MEDS ORDERED: COVID-19 VACCINE,AD26(JANSSEN)(J&J)/PF 0.5 ML VIAL IM. ONE (09:07)
[2020-12-13] MEDS ORDERED: TUBERCULIN, PURIFIED PROTEIN DERIVATIVE 5 TU/0.1 ML SYRINGE ID ONE (14:00)
[2020-12-13] MEDS: IBUPROFEN 400 MG TABLET PO PRN (14:01)
[2020-12-13 16:11] VITALS: BP 114/71
[2020-12-13] MEDS: CHLORHEXIDINE GLUCONATE 0.12% 15 ML UDCUP ORAL RINSE PO SCH (17:02)
[2020-12-13] MEDS: CLINDAMYCIN HCL 150 MG CAPSULE PO SCH (17:02)
[2020-12-13] MEDS: HALOPERIDOL 5 MG TABLET PO PRN (17:20)
[2020-12-13] MEDS: LORazepam 2 MG TABLET PO PRN (17:20)
[2020-12-14] MEDS: CLINDAMYCIN HCL 150 MG CAPSULE PO SCH ×5 (00:10→23:49)
[2020-12-14 00:18] VITALS: BP 117/68
[2020-12-14 08:15] VITALS: BP 114/73
[2020-12-14] MEDS: PRAMOXINE HCL/CALAMINE 177 ML BOTTLE TP SCH (09:00)
[2020-12-14] MEDS: THIAMINE 100 MG TABLET PO SCH (09:59)
[2020-12-14] MEDS: LORazepam 2 MG TABLET PO PRN (09:59)
[2020-12-14] MEDS: FOLIC ACID 1 MG TABLET PO SCH (09:59)
[2020-12-14] MEDS: ChlorproMAZINE HCL 100 MG TABLET PO SCH ×3 (09:59→20:31)
[2020-12-14] MEDS: CHLORHEXIDINE GLUCONATE 0.12% 15 ML UDCUP ORAL RINSE PO SCH ×2 (09:59→16:38)
[2020-12-14] MEDS: DIVALPROEX SODIUM 500 MG ER TABLET PO SCH ×3 (09:59→20:31)
[2020-12-14] MEDS: RisperiDONE 4 MG TABLET PO SCH ×2 (09:59→20:31)
[2020-12-14] MEDS: NICOTINE POLACRILEX 2 MG LOZENGE PO PRN (13:47)
[2020-12-14 14:54] LABS: COVID AG,FIA SOURCE NASOPHARYNGEAL
[2020-12-14 16:10] VITALS: BP 119/74
[2020-12-14] MEDS: MAG HYDROX/AL HYDROX/SIMETH ES 30 ML SUSPENSION UDCUP PO PRN (20:36)
[2020-12-15] MEDS: CLINDAMYCIN HCL 150 MG CAPSULE PO SCH ×4 (06:01→23:50)
[2020-12-15 06:45] VITALS: BP 109/66
[2020-12-15 08:28] VITALS: BP 109/69
[2020-12-15] MEDS: RisperiDONE 4 MG TABLET PO SCH ×2 (08:36→20:29)
[2020-12-15] MEDS: FOLIC ACID 1 MG TABLET PO SCH (08:36)
[2020-12-15] MEDS: ChlorproMAZINE HCL 100 MG TABLET PO SCH ×3 (08:36→20:29)
[2020-12-15] MEDS: THIAMINE 100 MG TABLET PO SCH (08:37)
[2020-12-15] MEDS: CHLORHEXIDINE GLUCONATE 0.12% 15 ML UDCUP ORAL RINSE PO SCH ×2 (08:37→16:33)
[2020-12-15] MEDS: PRAMOXINE HCL/CALAMINE 177 ML BOTTLE TP SCH (08:39)
[2020-12-15] MEDS: DIVALPROEX SODIUM 500 MG ER TABLET PO SCH ×3 (08:39→20:29)
[2020-12-15] MEDS: LORazepam 2 MG TABLET PO PRN (10:50)
[2020-12-15] MEDS: NICOTINE POLACRILEX 2 MG LOZENGE PO PRN (13:44)
[2020-12-15 16:17] VITALS: BP 109/72
[2020-12-16 00:56] VITALS: BP 112/74
[2020-12-16] MEDS: CLINDAMYCIN HCL 150 MG CAPSULE PO SCH ×2 (06:02→14:11)
[2020-12-16 06:16] VITALS: BP 120/74
[2020-12-16] MEDS: LORazepam 2 MG TABLET PO PRN (06:18)
[2020-12-16] MEDS: HALOPERIDOL 5 MG TABLET PO PRN (06:18)
[2020-12-16] MEDS: NICOTINE POLACRILEX 2 MG LOZENGE PO PRN ×2 (06:34→15:11)
[2020-12-16 08:21] VITALS: BP 108/73
[2020-12-16] MEDS: FOLIC ACID 1 MG TABLET PO SCH (09:04)
[2020-12-16] MEDS: RisperiDONE 4 MG TABLET PO SCH (09:04)
[2020-12-16] MEDS: THIAMINE 100 MG TABLET PO SCH (09:04)
[2020-12-16] MEDS: DIVALPROEX SODIUM 500 MG ER TABLET PO SCH (09:04)
[2020-12-16] MEDS ORDERED: DIVA-80 PO (09:56)
[2020-12-16] MEDS ORDERED: CHLO100T31 PO (09:56)
[2020-12-16] MEDS ORDERED: RISP4TAB63 PO (09:56)
[2020-12-16] MEDS: CHLORHEXIDINE GLUCONATE 0.12% 15 ML UDCUP ORAL RINSE PO SCH (10:26)
[2020-12-16] MEDS ORDERED: CHLO473M6 PO (10:27)
[2020-12-16] MEDS ORDERED: CLIN-26 PO (10:31)
[2020-12-16] MEDS: ChlorproMAZINE HCL 100 MG TABLET PO SCH (10:33)
[2020-12-16] MEDS ORDERED: [UNRECOGNIZED DRUG - CODE] TP (10:33)
[2020-12-16] MEDS: PRAMOXINE HCL/CALAMINE 177 ML BOTTLE TP SCH (10:33)
[2020-12-16 15:15] VITALS: BP 107/73
== END 2020-12-16 15:30 | DRG 885 ==
LOC: EMS 15:16 → B2X 19:24
DX: F20.0 Paranoid schizophrenia (principal); D64.9 Anemia, unspecified; F10.10 Alcohol abuse, uncomplicated; G40.909 Epilepsy, unspecified, not intractable, without status epilepticus; F12.90 Cannabis use, unspecified, uncomplicated; F41.9 Anxiety disorder, unspecified; R47.81 Slurred speech; K05.10 Chronic gingivitis, plaque induced; F19.10 Other psychoactive substance abuse, uncomplicated; F17.210 Nicotine dependence, cigarettes, uncomplicated; N43.3 Hydrocele, unspecified; Z20.822 Contact with and (suspected) exposure to COVID-19; Z59.0 Homelessness; Z79.899 Other long term (current) drug therapy; Z71.51 Drug abuse counseling and surveillance of drug abuser
CPT/HCPCS: 0031A; 70470; 76870; 80048; 80053; 80061; 80164; 81003; 83036; 84439; 84443; 85025; 87081; 91303; 99285; A9575; G0480; J1200; J1630; J2060; Q0162

== ENCOUNTER 2022-06-28 17:24 | Emergency (ER) | payer MEDICAID, MEDICARE ==
[~2022-06-28] VITALS: Ht 175.3 cm; Wt 77.3 kg
[~2022-06-28 17:24] MED LIST changes: +CHLO100T42 PO; +CHLO473M6 PO; +CLIN-26 PO; +DIVA500T53 PO; -RISP1TAB48 PO; +RISP4TAB63 PO; +[UNRECOGNIZED DRUG - CODE] TP
[2022-06-28 17:34] LABS: COVID AG,FIA SOURCE NASAL SWAB
[2022-06-28 18:02] LABS: INFLUENZA TYPE A NEGATIVE FOR TYPE A (NEGATIVE); INFLUENZA TYPE B NEGATIVE FOR TYPE B (NEGATIVE)
[2022-06-28] MEDS ORDERED: PENI500T2 PO (19:05)
[2022-06-28] MEDS ORDERED: GUAIFDM PO (19:05)
[2022-06-28] MEDS ORDERED: IBUP-1554 PO (19:05)
[2022-06-28 19:07] VITALS: BP 123/77
== END 2022-06-28 19:28 | disposition home or self-care (01) ==
LOC: EMS 17:28
DX: J06.9 Acute upper respiratory infection, unspecified (principal); K08.89 Other specified disorders of teeth and supporting structures; F20.9 Schizophrenia, unspecified; F17.210 Nicotine dependence, cigarettes, uncomplicated
CPT/HCPCS: 87804; 99283